=== PATIENT | female | born 1960 | race Caucasian/White ===

== ENCOUNTER 2020-05-20 16:48 | Outpatient (REF) | payer SELFPAY ==
[2020-05-20 18:17] LABS: Leukocytes Stool Qualitative NEGATIVE (NEGATIVE)
== END 2020-05-20 16:49 | disposition home or self-care (01) ==
LOC: HO.LNP 16:48
PROVIDERS: Visit Provider Internal Medicine Gastroenterology
DX: K58.2 Mixed irritable bowel syndrome (principal)
CPT/HCPCS: 87045; 87046; 87177; 87209; 89055

== ENCOUNTER 2020-06-26 17:35 | Emergency (ER) | payer BC, SELFPAY ==
[2020-06-26 18:46] VITALS: BP 109/75; PULSE 86; RESP 18; TEMP 36.5; O2SAT 100; BMI 27.6
[2020-06-26 21:09] VITALS: BP 113/72; PULSE 72; RESP 17; TEMP 37; O2SAT 98
--- NOTE | 2020-06-26 21:29 | ED_ITS ---
HPI - Nausea/Vomiting/Diarrhea General Chief complaint: Abdominal Pain Stated complaint: vomiting Time Seen by Provider: 06/26/20 21:27 Source: patient Mode of arrival: ambulatory Limitations: no limitations History of Present Illness HPI Narrative: This is a 59-year-old female without significant past medical history who presents with all day nausea with multiple episodes of nonbilious /nonbloody vomiting and concomitant nonbloody diarrhea without any associated fever, chills, shortness of breath, chest pain /palpitations, urinary pain/burning / frequency. Patient denies any history of diverticulosis or the possibility of contaminated food. Related Data Previous Rx's Medication Instructions Recorded ondansetron HCl [Zofran] 4 mg PO Q6H #4 tab 06/27/20 Allergies Allergy/AdvReac Type Severity Reaction Status Date / Time No Known Allergies Allergy Mild NONE Unverified 04/28/20 16:34 Review of Systems Review of Systems: Pertinent positives and negatives as stated in HPI 10 point review of systems otherwise negative. PMFSH Past Medical History Source: nursing notes reviewed Medical History No known health problems Surgical History H/O spinal fusion Social History Social History Smoking Status: Never smoker Use of substances other than those prescribed or required for medical reasons: No Advance Directives: No Advance Directives Information Provided: No Physical Exam Vital Signs: Vital Signs: Last Vital Signs Temp 98.6 F 06/26/20 21:09 Pulse 80 06/27/20 00:04 Resp 16 06/27/20 00:04 BP 124/68 06/27/20 00:04 Pulse Ox 97 06/27/20 00:04 Body Mass Index 27.6 VITAL SIGNS: Reviewed. GENERAL: Well developed, well nourished, in no acute distress. HEAD: Normocephalic/atraumatic, EYES: PERRLA, EOMI intact without pain, no nystagmus/pallor/icterus noted EARS: Ext canals without abnormality, TMs non-bulging and non-erythematous NOSE: Nares patent bilateral OROPHARYNX: no oral lesions noted, posterior pharynx clear and non-erythematous without noted tonsillar enlargement/erythema/exudates NECK: Supple, no adenopathy LUNGS: Normal breath sounds. No adventitious sounds or accessory muscle use. SpO2<98> CARDIOVASCULAR: Regular rate and rhythm without noted murmurs, no JVD or lower extremity edema. ABDOMEN: Soft, Tenderness at lower abdomen without rebound, non-distended with bowel sounds. No rigidity. No guarding. No palpable masses or hernias noted MUSCULOSKELETAL: No tenderness, deformities, or effusions noted on gross inspection. EXTREMITIES: No cyanosis, clubbing or edema. SKIN: Inspection of the skin reveals no rashes, ulcerations, jaundice, pallor, or petechiae. NEUROLOGIC: Alert and oriented x 4. Strength and sensation to light touch were grossly intact x 4. Course Course Course Narrative: this is a 59-year-old female with history and clinical presentation suggestive of possible UTI, gastroenteritis, diverticulitis, appendicitis. On review of all investigations there is no evidence of systemic infection, anemia, electrolyte abnormalities or renal/ liver dysfunction. In addition urinalysis is negative for any acute findings other than presence of ketones which does suggest mild dehydration. Patient responded well to antiemetics and fluid resuscitation and review of CT scan is negative for any acute intra- abdominal pathologies. On re-evaluation patient is able to tolerate p.o. and will be discharged in stable condition with a prescription for Zofran and instructions to take it over the next 24 hours and increase her fluid hydration. All results and findings were discussed with her at bedside. MDM - Nausea/Vomiting/Diarrhea Lab Data Result diagrams: 06/26/20 21:36 06/26/20 21:36 Labs: Lab Results 06/26/20 06/26/20 06/26/20 Range/Units 21:36 21:36 21:36 WBC 7.3 (4.8-10.8) X10*3/uL RBC 4.31 (4.20-5.50) X10*6/uL Hgb 14.5 (12.0-16.0) g/dl Hct 41.9 (37-47) % MCV 97.2 (80-98) fL MCH 33.6 H (27.0-33.0) pg MCHC 34.6 (31.0-35.0) g/dl RDW 11.7 (11.0-16.0) % Plt Count 211 (160-400) X10*3/uL MPV 11.3 (9.4-12.3) fL Immature Gran % (Auto) 0.1 (0.0-0.4) % Neut % (Auto) 74.5 H (45-73) % Lymph % (Auto) 18.7 L (20-40) % [place] % (Auto) 6.1 (2-11) % Eos % (Auto) 0.3 (0-4) % Baso % (Auto) 0.3 (0-2) % Lymph # (Auto) 1.4 (1.2-4.9) X10*3/uL [place] # (Auto) 0.4 (0.1-1.2) X10*3/uL Eos # (Auto) 0.0 (0.0-0.4) X10*3/uL Baso # (Auto) 0.0 (0.0-0.2) X10*3/uL Abs Immat Gran (auto) 0.01 (0.00-0.03) X10*3/uL Absolute Neuts (auto) 5.4 (2.0-8.3) X10*3/uL Absolute Nucleated RBC 0.000 (0.0-0.012) X10*3/uL Nucleated RBC % (auto) 0.0 (0.0-0.2) /100WBC Hold Purple Top PT 12.7 (10.8-13.0) SEC INR 1.1 (0.9-1.1) Sodium (135-145) mmol/L Potassium (3.3-5.1) mmol/l Chloride (96-108) mmol/L Carbon Dioxide (22-29) mmol/L Anion Gap (12-20) BUN (9-16) mg/dL Creatinine (0.5-1.4) mg/dL Estim Creat Clear Calc Estimated GFR Random Glucose (60-115) mg/dL Calcium (8.4-10.2) mg/dL Total Bilirubin (0.0-1.0) mg/dL AST (5-31) U/L ALT (0-31) U/L Alkaline Phosphatase (39-117) U/L Total Protein (6.5-8.0) g/dL Albumin (3.5-5.0) g/dL Lipase (8-78) U/L Hold Red Top See Note Hold Green Top See Note Hold Yellow Top See Note Urine Color Urine Appearance Urine pH (5.0-8.0) Ur Specific [place] (1.005-1.025) Urine Protein (NEG-TRACE) MG/DL Urine Glucose (UA) (NEG) MG/DL Urine Ketones (NEG) MG/DL Urine Blood (NEG) Urine Nitrite (NEG) Ur Leukocyte Esterase (NEG) 06/26/20 06/26/20 06/26/20 Range/Units 21:36 21:37 22:28 WBC (4.8-10.8) X10*3/uL RBC (4.20-5.50) X10*6/uL Hgb (12.0-16.0) g/dl Hct (37-47) % MCV (80-98) fL MCH (27.0-33.0) pg MCHC (31.0-35.0) g/dl RDW (11.0-16.0) % Plt Count (160-400) X10*3/uL MPV (9.4-12.3) fL Immature Gran % (Auto) (0.0-0.4) % Neut % (Auto) (45-73) % Lymph % (Auto) (20-40) % [place] % (Auto) (2-11) % Eos % (Auto) (0-4) % Baso % (Auto) (0-2) % Lymph # (Auto) (1.2-4.9) X10*3/uL [place] # (Auto) (0.1-1.2) X10*3/uL Eos # (Auto) (0.0-0.4) X10*3/uL Baso # (Auto) (0.0-0.2) X10*3/uL Abs Immat Gran (auto) (0.00-0.03) X10*3/uL Absolute Neuts (auto) (2.0-8.3) X10*3/uL Absolute Nucleated RBC (0.0-0.012) X10*3/uL Nucleated RBC % (auto) (0.0-0.2) /100WBC Hold Purple Top SEE NOTE PT (10.8-13.0) SEC INR (0.9-1.1) Sodium 141 (135-145) mmol/L Potassium 3.9 (3.3-5.1) mmol/l Chloride 105 (96-108) mmol/L Carbon Dioxide 28 (22-29) mmol/L Anion Gap 12 (12-20) BUN 9 (9-16) mg/dL Creatinine 0.69 (0.5-1.4) mg/dL Estim Creat Clear Calc 101.3 Estimated GFR > 60 Random Glucose 105 (60-115) mg/dL Calcium 9.1 (8.4-10.2) mg/dL Total Bilirubin 0.6 (0.0-1.0) mg/dL AST 31 (5-31) U/L ALT 34 H (0-31) U/L Alkaline Phosphatase 57 (39-117) U/L Total Protein 7.1 (6.5-8.0) g/dL Albumin 4.3 (3.5-5.0) g/dL Lipase 16 (8-78) U/L Hold Red Top Hold Green Top Hold Yellow Top Urine Color YELLOW Urine Appearance CLEAR Urine pH 6.5 (5.0-8.0) Ur Specific [place] 1.015 (1.005-1.025) Urine Protein NEG (NEG-TRACE) MG/DL Urine Glucose (UA) NEG (NEG) MG/DL Urine Ketones 15 (NEG) MG/DL Urine Blood NEG (NEG) Urine Nitrite NEG (NEG) Ur Leukocyte Esterase NEG (NEG) Discharge Plan Discharge Clinical Impression: Gastroenteritis Patient Disposition: Home, Self-Care Instructions: Dehydration (ED), Gastroenteritis (ED) Additional Instructions: 1. Continue to increase fluid hydration specifically water. 2. You must continue to self quarantine until your called with the results of your COVID-19 testing. During this time frame please review all state mandated guidelines and precautions for the [facility]. The patient and/or family acknowledge understanding of results (as applicable), diagnosis, treatment plan, need for follow up, and symptoms that should prompt a return to the emergency room. Prescriptions: New ondansetron HCl [Zofran] 4 mg tablet 4 mg PO Q6H Qty: 4 RF: 0
[2020-06-26] MEDS: 0.9 % Sodium Chloride 1,000 ML 1000 ML IV (21:42)
[2020-06-26 21:48] LABS: MANUAL DIFF FLAG NO
[2020-06-26 21:55] LABS: Basophils Percent Auto 0.3 % (0-2); Eosinophils Percent Auto 0.3 % (0-4); Hematocrit 41.9 % (37-47); Hemoglobin 14.5 g/dl (12.0-16.0); Imm Gran Abs Auto 0.01 X10*3/uL (0.00-0.03); Imm Gran Pct Auto 0.1 % (0.0-0.4); Lymphocytes Absolute Auto 1.4 X10*3/uL (1.2-4.9); Lymphocytes Percent Auto 18.7 % (20-40); Mean Corpuscular HGB Conc 34.6 g/dl (31.0-35.0); Mean Corpuscular Hemoglobin 33.6 pg (27.0-33.0); Mean Corpuscular Volume 97.2 fL (80-98); Mean Platelet Volume 11.3 fL (9.4-12.3); Monocytes Absolute Auto 0.4 X10*3/uL (0.1-1.2); Monocytes Percent Auto 6.1 % (2-11); Neutrophils Absolute Auto 5.4 X10*3/uL (2.0-8.3); Neutrophils Percent Auto 74.5 % (45-73); Platelet Count 211 X10*3/uL (160-400); Red Blood Count 4.31 X10*6/uL (4.20-5.50); Red Cell Distribution Width 11.7 % (11.0-16.0); White Blood Count 7.3 X10*3/uL (4.8-10.8)
[2020-06-26 22:00] LABS: INTERNATIONAL NORM RATIO 1.1 (0.9-1.1); Prothrombin Time 12.7 SEC (10.8-13.0)
[2020-06-26 22:14] LABS: Alanine Aminotransferase 34 U/L (0-31); Albumin Level 4.3 g/dL (3.5-5.0); Alkaline Phosphatase 57 U/L (39-117); Anion Gap 12 (12-20); Aspartate Amino Transferase 31 U/L (5-31); Bilirubin Total 0.6 mg/dL (0.0-1.0); Blood Urea Nitrogen 9 mg/dL (9-16); Calcium 9.1 mg/dL (8.4-10.2); Carbon Dioxide 28 mmol/L (22-29); Chloride 105 mmol/L (96-108); Creatinine Clr Calc Pharmacy 101.3; Estimated Glomerular Filt Rate > 60; Glucose Random 105 mg/dL (60-115); Lipase 16 U/L (8-78); Potassium 3.9 mmol/l (3.3-5.1); Sodium 141 mmol/L (135-145); Total Protein 7.1 g/dL (6.5-8.0)
[2020-06-26 22:29] VITALS: BP 126/76; PULSE 80; RESP 18; O2SAT 100
[2020-06-26 22:43] LABS: Glucose Urine UA NEG (NEG); Leukocyte Esterase Urine NEG (NEG); Nitrite Urine NEG (NEG); PH 6.5 (5.0-8.0); Specific Gravity - Urine 1.015 (1.005-1.025); Urine Blood NEG (NEG); Urine Ketones 15 MG/DL (NEG); Urine Protein NEG (NEG-TRACE)
[2020-06-26 22:46] LABS: Appearance Urine CLEAR; Color Urine YELLOW
--- NOTE | 2020-06-26 22:52 | CT_ITS ---
EXAMINATION: CT ABDOMEN AND PELVIS WITH CONTRAST CLINICAL INFORMATION: Lower abdominal pain. COMPARISON: 05/04/2019. TECHNIQUE: Contiguous axial thin section helical images of the abdomen and pelvis were performed following the administration of 85 mL of intravenous Omnipaque 3-50. The data set was reformatted in the coronal and sagittal planes and reviewed on an independent workstation. DLP: 619 mGy-cm. FINDINGS: There is mild bibasilar atelectasis. The visualized lung bases are otherwise clear. The visualized portions of the heart are unremarkable. There is a small hiatal hernia. The liver is of normal size and attenuation without concerning focal lesions nor intrahepatic biliary ductal dilation. Several low-attenuation lesions throughout the liver are stable. A normal gallbladder is identified. There is no wall thickening or discernible pericholecystic fluid. The spleen, pancreas, adrenal glands are unremarkable. Both kidneys are of normal size and attenuation without hydronephrosis or nephrolithiasis. There is stable right pelviectasis. Following the administration of IV contrast, prompt symmetric nephrograms are displayed. There is no abdominal free fluid. There is neither mesenteric nor retroperitoneal lymphadenopathy. Normal unopacified loops of small and large bowel are identified. A normal appendix is identified. There is no pelvic free fluid. The urinary bladder is unremarkable. There is neither pelvic nor inguinal lymphadenopathy. Bone windows: Neither sclerotic nor lytic bone lesions are identified. Posterior spinal fusion hardware is intact. CT/CT abdomen pelvis w con IMPRESSION: No evidence for acute abdominal or pelvic inflammatory or infectious processes. Automated exposure control (Care Dose) Adjustment of the mA and/or kv according to patient size (this includes techniques or standardized protocols for targeted exams where dose is matched to indication / reason for exam; i.e. extremities or head).
[2020-06-26] MEDS: iohexoL 350 MG/ML 100 ML INFUS..BTL 85 ML IV (23:57)
[2020-06-27 00:04] VITALS: BP 124/68; PULSE 80; RESP 16; O2SAT 97
--- NOTE | 2020-06-27 00:08 | PC.NURSE ---
Pt found resting in bed, CAOx4, awaiting CT results. Pt reporting a HERNANDEZ, 03/21, states it is making her nauseated. Pt requesting Tylenol for HERNANDEZ. VSS. Continue to monitor.
[2020-06-27] MEDS: Acetaminophen 325 MG TABLET 650 MG PO (00:12)
--- NOTE | 2020-06-27 00:14 | PC.NURSE ---
Pt medicated with Tylenol for HERNANDEZ. Awaiting CT results.
--- NOTE | 2020-06-27 01:03 | PC.NURSE ---
PT TOLERATED PO PLAN FOR D.C PER DR URIARTE
== END 2020-06-27 01:53 | disposition home or self-care (01) ==
PROVIDERS: Emergency Provider Student in an Organized Health Care Education/Training Program; PCP Internal Medicine
DX: K52.9 Noninfective gastroenteritis and colitis, unspecified (principal); E86.0 Dehydration; R10.9 Unspecified abdominal pain; R11.10 Vomiting, unspecified; Z79.899 Other long term (current) drug therapy
CPT/HCPCS: 36415; 74177; 80053; 81003; 83690; 85025; 85610; 96360; 99284; Q9967

== ENCOUNTER 2020-08-22 14:27 | Emergency (ER) | payer BC, SELFPAY ==
[2020-08-22 17:07] VITALS: BP 125/69; PULSE 78; RESP 18; TEMP 36.6; O2SAT 99; BMI 29.9
[2020-08-22 18:10] LABS: MANUAL DIFF FLAG NO
[2020-08-22 18:12] LABS: Basophils Percent Auto 0.7 % (0-2); Eosinophils Absolute Auto 0.1 X10*3/uL (0.0-0.4); Eosinophils Percent Auto 1.3 % (0-4); Hemoglobin 13.8 g/dl (12.0-16.0); Lymphocytes Absolute Auto 1.8 X10*3/uL (1.2-4.9); Lymphocytes Percent Auto 39.3 % (20-40); Mean Corpuscular HGB Conc 34.5 g/dl (31.0-35.0); Mean Corpuscular Hemoglobin 33.7 pg (27.0-33.0); Mean Corpuscular Volume 97.6 fL (80-98); Mean Platelet Volume 11.2 fL (9.4-12.3); Monocytes Absolute Auto 0.4 X10*3/uL (0.1-1.2); Monocytes Percent Auto 7.9 % (2-11); Neutrophils Absolute Auto 2.3 X10*3/uL (2.0-8.3); Neutrophils Percent Auto 50.8 % (45-73); Platelet Count 224 X10*3/uL (160-400); Red Cell Distribution Width 11.9 % (11.0-16.0); White Blood Count 4.6 X10*3/uL (4.8-10.8)
[2020-08-22 18:20] LABS: Glucose Urine UA NEG (NEG); Leukocyte Esterase Urine NEG (NEG); Nitrite Urine NEG (NEG); PH 6.5 (5.0-8.0); Urine Blood NEG (NEG); Urine Ketones 5 MG/DL (NEG); Urine Protein NEG (NEG-TRACE)
[2020-08-22 18:22] LABS: Appearance Urine CLEAR; Color Urine GREEN
[2020-08-22 18:41] LABS: Alanine Aminotransferase 39 U/L (0-31); Albumin Level 4.6 g/dL (3.5-5.0); Alkaline Phosphatase 62 U/L (39-117); Anion Gap 13 (12-20); Aspartate Amino Transferase 34 U/L (5-31); Bilirubin Total 0.4 mg/dL (0.0-1.0); Blood Urea Nitrogen 9 mg/dL (9-16); Calcium 9.6 mg/dL (8.4-10.2); Carbon Dioxide 27 mmol/L (22-29); Chloride 105 mmol/L (96-108); Estimated Glomerular Filt Rate > 60; Glucose Random 90 mg/dL (60-115); Lipase 16 U/L (8-78); Sodium 141 mmol/L (135-145); Total Protein 7.4 g/dL (6.5-8.0)
--- NOTE | 2020-08-22 21:42 | ED.FEMALEGU ---
HPI - Female Genitourinary General Chief complaint: Urogenital-Female Stated complaint: flank pain Time Seen by Provider: 08/22/20 21:35 Source: patient Mode of arrival: ambulatory Limitations: no limitations History of Present Illness HPI Narrative: Patient comes to the emergency room complaining of a urinary tract infection and right-sided flank pain. Patient states that the UTI started a week ago, patient has tried Macrobid, Bactrim which she had to suspend due to an allergic reaction, and 2 days of ciprofloxacin. Patient states her symptoms keep getting worse, now complaining of chills, right-sided flank pain, dysuria with no hematuria MD elicited complaint: dysuria and flank pain Related Data Home Medications Medication Instructions Recorded Confirmed estradiol VAGINAL 06/30/20 Previous Rx's Medication Instructions Recorded famotidine 40 mg tablet 40 mg PO DAILY #90 tab 06/30/20 ondansetron HCl 4 mg tablet 4 mg PO Q12H PRN #20 tab 06/30/20 zolpidem 10 mg tablet 10 mg PO BEDTIME PRN #30 tab 08/01/20 tramadol 50 mg PO TID PRN #10 tab 08/23/20 Allergies Allergy/AdvReac Type Severity Reaction Status Date / Time Sulfa (Sulfonamide Allergy Intermediate Rash Verified 08/22/20 17:07 Antibiotics) Review of Systems Review of Systems: Constitutional : No Weight loss, No Fever, complaining of Chills, No Night Sweats, No Fatigue, No Malaise ENT/Mouth : No Hearing loss, No Ear Pain, No Nasal Congestion, No Sinus Pain, No Hoarseness, No sore throat, No Rhinorrhea, No Swallowing Difficulty Eyes: No Eye Pain, No Swelling, No Redness, No Foreign Body, No Discharge, No Vision Changes Cardiovascular : No Chest Pain, No SOB, No Dyspnea on Exertion, No Orthopnea, No Edema, No Palpitations Respiratory : No Cough, No Sputum, No Wheezing, No Smoke Exposure, No Dyspnea Gastrointestinal : No Nausea, No Vomiting, No Diarrhea, No Constipation, No abdominal Pain, No Hematochezia, No Melena Genitourinary : no irregular bleeding, patient complaining of dysuria, no hematuria, flank pain Musculoskeletal : No joint pain, No Myalgias, No Joint Swelling Skin : No Skin Lesions, No rash Neuro : No Weakness, No Numbness, No Paresthesias, No Loss of Consciousness, No Dizziness, No Headache Psych : No Anxiety/Panic, No Depression, No SI/HI/AH/VH, No Social Issues, Heme/Lymph: No Bruising, No Bleeding,No Lymphadenopathy Endocrine : No Polyuria, No Polydipsia, No Temperature Intolerance PMF Past Medical History Medical History Dyspepsia Insomnia Interstitial cystitis Postlaminectomy syndrome Rectocele Surgical History H/O spinal fusion History of back surgery History of bladder surgery History of colonoscopy History of esophagogastroduodenoscopy (EGD) History of lumbar laminectomy Hx of vaginal hysterectomy Family History Family History Father No problems noted. Mother No problems noted. Sister No problems noted. Sister No problems noted. Son No problems noted. Daughter No problems noted. Daughter No problems noted. Social History Social History Alcohol intake: never Smoking Status: Never smoker Smoked in Last 30 Days: No Use of substances other than those prescribed or required for medical reasons: No Advance Directives: No Advance Directives Information Provided: Yes Physical Exam Vital Signs: Vital Signs: Last Vital Signs Temp 97.8 F 08/22/20 21:43 Pulse 70 08/22/20 23:40 Resp 18 08/22/20 23:40 BP 111/59 L 08/22/20 23:40 Pulse Ox 99 08/22/20 23:40 Body Mass Index 29.9 Appearance: Alert. Oriented X3. No acute distress. Eyes: Pupils equal, round and reactive to light. ENT: Pharynx normal. Neck: Normal inspection. Neck supple. No lymph nodes noted. No crepitus CVS: Normal heart rate and rhythm. Pulses normal. Normal S1 and S2 Respiratory: No respiratory distress. Breath sounds normal. No Wheezing. No rales Abdomen: Soft and nontender. No rigidity. No distention. good BS x4, positive CVA tenderness Skin: Skin warm and dry. Normal skin color. Normal skin turgor. Extremities: No lower extremity edema. No lower extremity edema. No Lacerations. No Rash Neuro: Oriented X 3. No motor deficit. No sensory deficit. Moving all extermities. No slurred speech. Course Course Course Narrative: I discussed the labs imaging with the patient, no acute findings, patient does not have a UTI. No kidney stones. I discussed with the patient that the appendix was not visualized, but no surrounding inflammation was visualized either. White blood cell count within normal limits. Patient's symptoms likely secondary to interstitial cystitis. Patient states she is due for a cystoscopy next month. I discussed with the patient that it is possible that she may have early appendicitis. Patient has no right lower quadrant pain. I discussed with the patient monitoring her symptoms, if she has any worsening pain, fever, chills, she was instructed to return to the emergency room MDM - Female Genitourinary Lab Data Result diagrams: 08/22/20 21:54 08/22/20 21:54 Labs: Lab Results 08/22/20 08/22/20 08/22/20 Range/Units 17:28 18:01 18:01 WBC 4.6 L (4.8-10.8) X10*3/uL RBC 4.10 L (4.20-5.50) X10*6/uL Hgb 13.8 (12.0-16.0) g/dl Hct 40.0 (37-47) % MCV 97.6 (80-98) fL MCH 33.7 H (27.0-33.0) pg MCHC 34.5 (31.0-35.0) g/dl RDW 11.9 (11.0-16.0) % Plt Count 224 (160-400) X10*3/uL MPV 11.2 (9.4-12.3) fL Immature Gran % (Auto) 0.0 (0.0-0.4) % Neut % (Auto) 50.8 (45-73) % Lymph % (Auto) 39.3 (20-40) % [place] % (Auto) 7.9 (2-11) % Eos % (Auto) 1.3 (0-4) % Baso % (Auto) 0.7 (0-2) % Lymph # (Auto) 1.8 (1.2-4.9) X10*3/uL [place] # (Auto) 0.4 (0.1-1.2) X10*3/uL Eos # (Auto) 0.1 (0.0-0.4) X10*3/uL Baso # (Auto) 0.0 (0.0-0.2) X10*3/uL Abs Immat Gran (auto) 0.00 (0.00-0.03) X10*3/uL Absolute Neuts (auto) 2.3 (2.0-8.3) X10*3/uL Absolute Nucleated RBC 0.000 (0.0-0.012) X10*3/uL Nucleated RBC % (auto) 0.0 (0.0-0.2) /100WBC Hold Blue Top SEE NOTE Sodium (135-145) mmol/L Potassium (3.3-5.1) mmol/l Chloride (96-108) mmol/L Carbon Dioxide (22-29) mmol/L Anion Gap (12-20) BUN (9-16) mg/dL Creatinine (0.5-1.4) mg/dL Estim Creat Clear Calc Estimated GFR Random Glucose (60-115) mg/dL Lactic Acid (0.5-2.0) mmol/L Calcium (8.4-10.2) mg/dL Total Bilirubin (0.0-1.0) mg/dL Direct Bilirubin (0.0-0.5) mg/dL AST (5-31) U/L ALT (0-31) U/L Alkaline Phosphatase (39-117) U/L Total Protein (6.5-8.0) g/dL Albumin (3.5-5.0) g/dL Lipase (8-78) U/L Urine Color GREEN Urine Appearance CLEAR Urine pH 6.5 (5.0-8.0) Ur Specific [place] 1.010 (1.005-1.025) Urine Protein NEG (NEG-TRACE) MG/DL Urine Glucose (UA) NEG (NEG) MG/DL Urine Ketones 5 (NEG) MG/DL Urine Blood NEG (NEG) Urine Nitrite NEG (NEG) Ur Leukocyte Esterase NEG (NEG) 08/22/20 08/22/20 08/22/20 Range/Units 18:01 21:54 21:54 WBC 4.3 L (4.8-10.8) X10*3/uL RBC 4.12 L (4.20-5.50) X10*6/uL Hgb 13.9 (12.0-16.0) g/dl Hct 40.2 (37-47) % MCV 97.6 (80-98) fL MCH 33.7 H (27.0-33.0) pg MCHC 34.6 (31.0-35.0) g/dl RDW 12.0 (11.0-16.0) % Plt Count 230 (160-400) X10*3/uL MPV 11.2 (9.4-12.3) fL Immature Gran % (Auto) 0.0 (0.0-0.4) % Neut % (Auto) 37.6 L (45-73) % Lymph % (Auto) 48.6 H (20-40) % [place] % (Auto) 10.6 (2-11) % Eos % (Auto) 2.3 (0-4) % Baso % (Auto) 0.9 (0-2) % Lymph # (Auto) 2.1 (1.2-4.9) X10*3/uL [place] # (Auto) 0.5 (0.1-1.2) X10*3/uL Eos # (Auto) 0.1 (0.0-0.4) X10*3/uL Baso # (Auto) 0.0 (0.0-0.2) X10*3/uL Abs Immat Gran (auto) 0.00 (0.00-0.03) X10*3/uL Absolute Neuts (auto) 1.6 L (2.0-8.3) X10*3/uL Absolute Nucleated RBC 0.000 (0.0-0.012) X10*3/uL Nucleated RBC % (auto) 0.0 (0.0-0.2) /100WBC Hold Blue Top Sodium 141 141 (135-145) mmol/L Potassium 4.0 3.5 (3.3-5.1) mmol/l Chloride 105 104 (96-108) mmol/L Carbon Dioxide 27 27 (22-29) mmol/L Anion Gap 13 14 (12-20) BUN 9 8 L (9-16) mg/dL Creatinine 0.78 0.79 (0.5-1.4) mg/dL Estim Creat Clear Calc 83.0 81.9 Estimated GFR > 60 > 60 Random Glucose 90 99 (60-115) mg/dL Lactic Acid (0.5-2.0) mmol/L Calcium 9.6 9.5 (8.4-10.2) mg/dL Total Bilirubin 0.4 0.5 (0.0-1.0) mg/dL Direct Bilirubin 0.2 (0.0-0.5) mg/dL AST 34 H 35 H (5-31) U/L ALT 39 H 40 H (0-31) U/L Alkaline Phosphatase 62 65 (39-117) U/L Total Protein 7.4 7.7 (6.5-8.0) g/dL Albumin 4.6 4.8 (3.5-5.0) g/dL Lipase 16 (8-78) U/L Urine Color Urine Appearance Urine pH (5.0-8.0) Ur Specific [place] (1.005-1.025) Urine Protein (NEG-TRACE) MG/DL Urine Glucose (UA) (NEG) MG/DL Urine Ketones (NEG) MG/DL Urine Blood (NEG) Urine Nitrite (NEG) Ur Leukocyte Esterase (NEG) 08/22/20 Range/Units 21:54 WBC (4.8-10.8) X10*3/uL RBC (4.20-5.50) X10*6/uL Hgb (12.0-16.0) g/dl Hct (37-47) % MCV (80-98) fL MCH (27.0-33.0) pg MCHC (31.0-35.0) g/dl RDW (11.0-16.0) % Plt Count (160-400) X10*3/uL MPV (9.4-12.3) fL Immature Gran % (Auto) (0.0-0.4) % Neut % (Auto) (45-73) % Lymph % (Auto) (20-40) % [place] % (Auto) (2-11) % Eos % (Auto) (0-4) % Baso % (Auto) (0-2) % Lymph # (Auto) (1.2-4.9) X10*3/uL [place] # (Auto) (0.1-1.2) X10*3/uL Eos # (Auto) (0.0-0.4) X10*3/uL Baso # (Auto) (0.0-0.2) X10*3/uL Abs Immat Gran (auto) (0.00-0.03) X10*3/uL Absolute Neuts (auto) (2.0-8.3) X10*3/uL Absolute Nucleated RBC (0.0-0.012) X10*3/uL Nucleated RBC % (auto) (0.0-0.2) /100WBC Hold Blue Top Sodium (135-145) mmol/L Potassium (3.3-5.1) mmol/l Chloride (96-108) mmol/L Carbon Dioxide (22-29) mmol/L Anion Gap (12-20) BUN (9-16) mg/dL Creatinine (0.5-1.4) mg/dL Estim Creat Clear Calc Estimated GFR Random Glucose (60-115) mg/dL Lactic Acid 0.9 (0.5-2.0) mmol/L Calcium (8.4-10.2) mg/dL Total Bilirubin (0.0-1.0) mg/dL Direct Bilirubin (0.0-0.5) mg/dL AST (5-31) U/L ALT (0-31) U/L Alkaline Phosphatase (39-117) U/L Total Protein (6.5-8.0) g/dL Albumin (3.5-5.0) g/dL Lipase (8-78) U/L Urine Color Urine Appearance Urine pH (5.0-8.0) Ur Specific [place] (1.005-1.025) Urine Protein (NEG-TRACE) MG/DL Urine Glucose (UA) (NEG) MG/DL Urine Ketones (NEG) MG/DL Urine Blood (NEG) Urine Nitrite (NEG) Ur Leukocyte Esterase (NEG) Discharge Plan Discharge Clinical Impression: Acute flank pain Patient Disposition: Home, Self-Care Instructions: Flank Pain (ED) Additional Instructions: If you have any worsening pain, fever, chills, please return to emergency room. Please follow-up with your primary care physician and your urologist tomorrow. If you have any worsening or new symptoms, please return to the emergency room or call 911 Prescriptions: New tramadol 50 mg tablet 50 mg PO TID PRN (Reason: pain) Qty: 10 RF: 0 No Action famotidine 40 mg tablet 40 mg PO DAILY Qty: 90 RF: 0 zolpidem 10 mg tablet 10 mg PO BEDTIME PRN (Reason: insomnia) Qty: 30 RF: 0 estradiol 0.01 % (0.1 mg/gram) cream vaginal RF: 0 ondansetron HCl [Zofran] 4 mg tablet 4 mg PO Q12H PRN (Reason: nausea and vomiting) Qty: 20 RF: 0
[2020-08-22 21:43] VITALS: BP 125/59; PULSE 72; RESP 18; TEMP 36.6; O2SAT 96
[2020-08-22 22:00] LABS: MANUAL DIFF FLAG NO
[2020-08-22 22:02] LABS: Basophils Percent Auto 0.9 % (0-2); Eosinophils Absolute Auto 0.1 X10*3/uL (0.0-0.4); Eosinophils Percent Auto 2.3 % (0-4); Hematocrit 40.2 % (37-47); Hemoglobin 13.9 g/dl (12.0-16.0); Lymphocytes Absolute Auto 2.1 X10*3/uL (1.2-4.9); Lymphocytes Percent Auto 48.6 % (20-40); Mean Corpuscular HGB Conc 34.6 g/dl (31.0-35.0); Mean Corpuscular Hemoglobin 33.7 pg (27.0-33.0); Mean Corpuscular Volume 97.6 fL (80-98); Mean Platelet Volume 11.2 fL (9.4-12.3); Monocytes Absolute Auto 0.5 X10*3/uL (0.1-1.2); Monocytes Percent Auto 10.6 % (2-11); Neutrophils Absolute Auto 1.6 X10*3/uL (2.0-8.3); Neutrophils Percent Auto 37.6 % (45-73); Platelet Count 230 X10*3/uL (160-400); Red Blood Count 4.12 X10*6/uL (4.20-5.50); White Blood Count 4.3 X10*3/uL (4.8-10.8)
[2020-08-22] MEDS: Ketorolac Tromethamine 30 MG/ML VIAL IVPUSH (22:12)
[2020-08-22] MEDS: cefTRIAXone sodium 1 GM in 0.9 % Sodium Chloride 50 ML IV (22:14)
[2020-08-22 22:22] LABS: Lactic Acid 0.9 mmol/L (0.5-2.0)
--- NOTE | 2020-08-22 22:25 | CT_ITS ---
EXAMINATION: CT ABDOMEN AND PELVIS WITHOUT CONTRAST CLINICAL INFORMATION: Right flank pain. COMPARISON: CT abdomen and pelvis 06/26/2020. TECHNIQUE: Multidetector volumetric imaging was performed from the superior aspect of the liver through the pubic symphysis. Sagittal and coronal reformatted images were obtained on the technologist's workstation. This CT examination was performed using dose optimization techniques as appropriate, variously including the following: *Automated exposure control. *Adjustment of mA and/or kV according to patient size (this includes techniques or standardized protocols for targeted exams where dose is matched to indication/reason for exam; i.e. extremities or head). *Use of iterative reconstruction technique. DLP: 607 mGy-cm FINDINGS: LUNG BASES: The visualized lung bases are unremarkable. LIVER, GALLBLADDER, AND BILIARY TREE: The liver is normal in size, shape, and attenuation. Multiple hepatic cysts are again seen and appear stable. No focal hepatic lesion or biliary ductal dilatation is present. The gallbladder is unremarkable with no evidence of radiopaque gallstones, gallbladder wall thickening, or obvious pericholecystic inflammatory changes. PANCREAS: Unremarkable. SPLEEN: Unremarkable. ADRENAL GLANDS: Unremarkable. KIDNEYS AND URETERS: The kidneys are normal in size, shape, and attenuation. A small punctate non-obstructing left lower pole renal calculus is present measuring under 2 mm in size. No hydronephrosis, hydroureter, or calculi seen. Some minimal fullness of the right renal pelvis is present compared to the left but no obstructing lesion is seen. No perinephric stranding. BLADDER: Unremarkable. GASTROINTESTINAL TRACT: The small and large bowel are unremarkable. The appendix is unremarkable. ABDOMINAL WALL: No significant hernia is appreciated. LYMPH NODES: Normal. VASCULAR: Unremarkable. PELVIC VISCERA: Status post hysterectomy. An abnormal adnexal mass or free intraperitoneal fluid is not seen. OSSEOUS STRUCTURES: There has been previous laminectomy and posterior spinal fusion. CT/CT abdomen pelvis wo con IMPRESSION: 1. A cause for the patient's acute right flank pain has not been found. 2. Incidentally noted small sub-2 mm sized non-obstructing left renal calculus 3. Small hepatic hypodensities, presumably cysts, are stable. 4. Postop findings with hysterectomy and spinal surgery.
[2020-08-22 22:26] LABS: Alanine Aminotransferase 40 U/L (0-31); Albumin Level 4.8 g/dL (3.5-5.0); Alkaline Phosphatase 65 U/L (39-117); Anion Gap 14 (12-20); Aspartate Amino Transferase 35 U/L (5-31); Bilirubin Direct 0.2 mg/dL (0.0-0.5); Bilirubin Total 0.5 mg/dL (0.0-1.0); Blood Urea Nitrogen 8 mg/dL (9-16); Calcium 9.5 mg/dL (8.4-10.2); Carbon Dioxide 27 mmol/L (22-29); Chloride 104 mmol/L (96-108); Creatinine Clr Calc Pharmacy 81.9; Estimated Glomerular Filt Rate > 60; Glucose Random 99 mg/dL (60-115); Potassium 3.5 mmol/l (3.3-5.1); Sodium 141 mmol/L (135-145); Total Protein 7.7 g/dL (6.5-8.0)
[2020-08-22] MEDS: Morphine Sulfate 4 MG/ML CARTRIDGE IVPUSH (23:39)
[2020-08-22 23:40] VITALS: BP 111/59; PULSE 70; RESP 18; O2SAT 99
[2020-08-23] VITALS: BP 114/47; PULSE 55; RESP 16; TEMP 36.9; O2SAT 99
== END 2020-08-23 00:28 | disposition home or self-care (01) ==
PROVIDERS: Emergency Medicine; Emergency Provider Emergency Medicine
DX: R10.9 Unspecified abdominal pain (principal)
CPT/HCPCS: 36415; 74176; 80048; 80053; 80076; 81003; 82248; 83605; 83690; 85025; 87040; 96365; 96375; 99284; J0696; J1885; J2270

== ENCOUNTER 2021-01-02 07:37 | Outpatient (REF) | payer BC, SELFPAY ==
[2021-01-02 12:15] LABS: Alanine Aminotransferase 32 U/L (0-31); Anion Gap 12 (12-20); Aspartate Amino Transferase 37 U/L (5-31); Blood Urea Nitrogen 12 mg/dL (9-16); Calcium 9.1 mg/dL (8.4-10.2); Carbon Dioxide 27 mmol/L (22-29); Chloride 106 mmol/L (96-108); Cholesterol 246 mg/dL; Estimated Glomerular Filt Rate > 60; Glucose Fasting 101 mg/dL (60-99); HDL Cholesterol 67 mg/dL; LDL Cholesterol Calculated 163 mg/dl; Potassium 4.1 mmol/L (3.3-5.1); Sodium 141 mmol/L (135-145); Triglycerides 84 mg/dL
[2021-01-02 12:17] LABS: Vitamin D 25-OH Total 46.5 ng/mL (>30)
== END 2021-01-02 07:38 | disposition home or self-care (01) ==
LOC: HO.HMGCLDS 07:37
PROVIDERS: PCP Internal Medicine; Visit Provider Internal Medicine
DX: Z00.01 Encounter for general adult medical examination with abnormal findings (principal); I10 Essential (primary) hypertension; Z78.0 Asymptomatic menopausal state
CPT/HCPCS: 36415; 80048; 80061; 82306; 84450; 84460

== ENCOUNTER 2021-06-23 09:11 | Day surgery (SDC) | payer BC, SELFPAY ==
[2021-06-23 10:21] VITALS: BP 99/63; PULSE 76; RESP 16; TEMP 36.1; O2SAT 98; BMI 26.1
--- NOTE | 2021-06-23 10:52 | MHC.SHP ---
Pre-Procedural Eval Section A Date of Service: 06/23/21 The patient is an INPATIENT: No Changes since office visit: No Cold of Flu in the past 2 weeks, No New Medical Problems, No Changes in Medication and No Patient answered all questions The History & Physical has been completed within 30 days and I have reviewed it.: Yes Section B Chief Complaint: IBS Allergies: Allergies Allergy/AdvReac Type Severity Reaction Status Date / Time Sulfa (Sulfonamide Allergy Intermediate Rash Verified 12/28/20 12:23 Antibiotics) Plan I have reviewed the history and physical and performed a pertinent physical examination on my patient. No changes have occurred unless specified.
--- NOTE | 2021-06-23 10:52 | HO.ANESPROP2 ---
HPI - Anesthesia Eval Consult details Narrative: 60 yo female patient for colonoscopy PMFSH Active Problems Active Problems: All Active Problems (Updated 01/03/21 @ 23:57 by Concetta Thorpe MD) Folliculitis (Acute) Postlaminectomy syndrome (Acute) Insomnia (Acute) Interstitial cystitis (Acute) Past Medical History Medical History Dyspepsia Folliculitis Insomnia Interstitial cystitis Postlaminectomy syndrome Rectocele Family History Family History Father No problems noted. Mother No problems noted. Sister No problems noted. Sister No problems noted. Son No problems noted. Daughter No problems noted. Daughter No problems noted. Family history of problems with anesthesia: No Surgical History Surgical History H/O spinal fusion History of back surgery History of bladder surgery History of colonoscopy History of esophagogastroduodenoscopy (EGD) History of lumbar laminectomy Hx of vaginal hysterectomy History of Problems with Anesthesia: No Social History Social History Alcohol intake: never Patient Tobacco Use Status: Never used Tobacco Use of substances other than those prescribed or required for medical reasons: No Are you DNR?: No Advance Directives: No Advance Directives Information Provided: Yes Meds Allergies Allergy/AdvReac Type Severity Reaction Status Date / Time Sulfa (Sulfonamide Allergy Intermediate Rash Verified 12/28/20 12:23 Antibiotics) Home Medications Medication Instructions Recorded Confirmed Last Taken Type estradiol VAGINAL 06/30/20 Unknown History cholecalciferol (vitamin D3) 50 4,000 unit PO DAILY cap 12/28/20 12/28/20 Unknown History mcg (2,000 unit) capsule multivitamin 1 tab PO DAILY 12/28/20 12/28/20 Unknown History Exam Exam Date and Time: June 23, 2021 1052 Height,Weight and Vital Signs: Height 5 ft 8 in Weight 78.018 kg Last Vital Signs Temp 96.9 F 06/23/21 10:21 Pulse 76 06/23/21 10:21 Resp 16 06/23/21 10:21 BP 99/63 06/23/21 10:21 Pulse Ox 98 06/23/21 10:21 Airway Mallampati Class: II TM Dist: >3cm Neck ROM: Limited (S/p cervical surgery) Loose/Missing/Broken Teeth: No Heart: RRR Lungs: CTAB Assessment and Plan Assessment Anesthesia Assessment: Anesthesia Plan Discussed (Patient feels like vomiting. Will intubate for procedure) and Chart Reviewed Final Anesthetic Review Family History of Problems with Anesthesia: No History of Problems with Anesthesia: No NPO: Yes ASA Class: II Final Preanesthetic Review: No Changes in Pt Med Stat, Meds/Allgs Chart Reviewed, Consent Obtained/Reviewed and Anes Risks/Benef Reviewed Patient Risk: Intermediate Procedure Risk: Low Assessment/Block/Sedation in SS: Assess/Block/Sedation-SS Anesthetic Plan Anesthetic Plan: GA Disposition: Standard PACU
[2021-06-23] MEDS: Lactated Ringers 1,000 ML 100 ML IVCONT (11:01)
[2021-06-23 11:39] VITALS: BP 105/59; PULSE 67; RESP 14; TEMP 36.1; O2SAT 98
--- NOTE | 2021-06-23 11:43 | PM.OP ---
Brief Operative Note Date of Service: 06/23/21 Pre-op diagnosis: ibs Post-op diagnosis: same Procedure: colonoscopy Surgeon: Reji Chambers Anesthesia: MAC Was an Loss Prevention/Safety District Manager used for this Procedure?: No Estimated blood loss (mL): 1 Pathology: other (bxs ti and sigmoid) Condition: stable Disposition: PACU
[2021-06-23 12:01] VITALS: BP 99/59; PULSE 61; RESP 16; TEMP 36.1; O2SAT 99
[2021-06-23 12:06] VITALS: BP 103/73
--- NOTE | 2021-06-23 15:20 | OP_ITS ---
SURGEON: Reji Chambers MD INDICATIONS: Irritable bowel syndrome with constipation. PREOPERATIVE DIAGNOSIS: POSTOPERATIVE DIAGNOSIS: PROCEDURE PERFORMED: Colonoscopy to the terminal ileum with biopsy. ESTIMATED BLOOD LOSS: COMPLICATIONS: ANESTHESIA: ASSISTANTS: SPECIMENS: MEDICATIONS: Monitored anesthesia care. DESCRIPTION OF PROCEDURE: History and physical performed. The risks and benefits of the procedure were explained to the patient. Informed consent was obtained. The patient was placed in the left lateral decubitus position. A digital rectal exam was performed and was found to be normal. The Olympus pediatric video colonoscope was introduced into the rectum and advanced to the cecum without difficulty. The cecum was identified by transillumination, palpation, and identification of ileocecal valve. Examination was performed and the scope was removed. She tolerated the procedure well and was taken to recovery area in stable condition. FINDINGS: The terminal ileum was examined and appeared normal. The visualized colonic mucosa was normal. The quality of the prep was good. There was no evidence of colitis. 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 Biopsies were obtained from the terminal ileum and the sigmoid. The quality of the prep was good. Retroflexed examination showed some hypertrophic anal papillae. IMPRESSION: Normal colonoscopy. RECOMMENDATION: Follow up the biopsy results. Screening colonoscopy is recommended in 10 years. MD KAYLI Mcgarry/KENJI / [id number] MTDD
== END 2021-06-23 12:31 | disposition home or self-care (01) ==
PROVIDERS: PCP Physician Assistant Medical; Visit Provider Internal Medicine Gastroenterology
PROC: 0DJD8ZZ Inspection of Lower Intestinal Tract, Via Natural or Artificial Opening Endoscopic (ICD-10-PCS; CPT 45378; principal; 2021-06-23 10:20)
DX: K58.1 Irritable bowel syndrome with constipation (principal); K63.89 Other specified diseases of intestine; K62.89 Other specified diseases of anus and rectum; N30.10 Interstitial cystitis (chronic) without hematuria; R32 Unspecified urinary incontinence; M96.1 Postlaminectomy syndrome, not elsewhere classified; Z79.899 Other long term (current) drug therapy
CPT/HCPCS: 45380; 88305; J0330; J2405; J2765; J3010

== ENCOUNTER 2022-11-07 12:19 | Day surgery (SDC) | payer BC, SELFPAY ==
--- NOTE | 2022-11-06 12:04 | HO.ANESPROP2 ---
HPI - Anesthesia Eval Consult details Narrative: 62yo F for Upper Endoscopy PMFSH Active Problems Active Problems: All Active Problems (Updated 01/03/21 @ 23:57 by Concetta Thorpe MD) Folliculitis (Acute) Postlaminectomy syndrome (Acute) Insomnia (Acute) Interstitial cystitis (Acute) Past Medical History Medical History Dyspepsia Folliculitis Insomnia Interstitial cystitis Postlaminectomy syndrome Rectocele Family History Family History Father No problems noted. Mother No problems noted. Sister No problems noted. Sister No problems noted. Son No problems noted. Daughter No problems noted. Daughter No problems noted. Family history of problems with anesthesia: No Surgical History Surgical History H/O spinal fusion History of back surgery History of bladder surgery History of colonoscopy History of esophagogastroduodenoscopy (EGD) History of lumbar laminectomy Hx of vaginal hysterectomy History of Problems with Anesthesia: No Social History Social History Alcohol intake: never Patient Tobacco Use Status: Never used Tobacco Use of substances other than those prescribed or required for medical reasons: No Are you DNR?: No Advance Directives: No Advance Directives Information Provided: Yes Meds Allergies Allergy/AdvReac Type Severity Reaction Status Date / Time Sulfa (Sulfonamide Allergy Intermediate Rash Verified 12/28/20 12:23 Antibiotics) Home Medications Medication Instructions Recorded Confirmed Last Taken Type estradiol 0.01% (0.1 mg/gram) vaginal 2XW 06/30/20 Unknown History vaginal cream multivitamin 1 tab PO DAILY 12/28/20 12/28/20 Unknown History Exam Exam Date and Time: November 06, 2022 120 Assessment and Plan Final Anesthetic Review Family History of Problems with Anesthesia: No History of Problems with Anesthesia: No
[2022-11-07] VITALS (7 sets, daily range): BP systolic 78–116; BP diastolic 31–69; PULSE 55–75; RESP 13–18; TEMP 36.2–36.7; O2SAT 91–99; BMI 28.3
--- NOTE | 2022-11-07 13:29 | P.CONAN_ITS ---
HPI - Anesthesia Eval Consult details Narrative: screening [facility] Active Problems Active Problems: All Active Problems (Updated 01/03/21 @ 23:57 by Concetta Thorpe MD) Folliculitis (Acute) Postlaminectomy syndrome (Acute) Insomnia (Acute) Interstitial cystitis (Acute) Past Medical History Medical History Dyspepsia Folliculitis Insomnia Interstitial cystitis Postlaminectomy syndrome Rectocele Family History Family History Father No problems noted. Mother No problems noted. Sister No problems noted. Sister No problems noted. Son No problems noted. Daughter No problems noted. Daughter No problems noted. Family history of problems with anesthesia: No Surgical History Surgical History H/O spinal fusion History of back surgery History of bladder surgery History of colonoscopy History of esophagogastroduodenoscopy (EGD) History of lumbar laminectomy Hx of vaginal hysterectomy History of Problems with Anesthesia: No Social History Social History Alcohol intake: never Patient Tobacco Use Status: Never used Tobacco Use of substances other than those prescribed or required for medical reasons: No Are you DNR?: No Advance Directives: No Advance Directives Information Provided: Yes Meds Allergies Allergy/AdvReac Type Severity Reaction Status Date / Time Sulfa (Sulfonamide Allergy Intermediate Rash Verified 12/28/20 12:23 Antibiotics) Home Medications Medication Instructions Recorded Confirmed Last Taken Type estradiol 0.01% (0.1 mg/gram) vaginal 2XW 06/30/20 Unknown History vaginal cream multivitamin 1 tab PO DAILY 12/28/20 12/28/20 Unknown History Exam Exam Date and Time: November 07, 2022 1329 Height,Weight and Vital Signs: Height 5 ft 8 in Weight 84.368 kg Last Vital Signs Temp 97.6 F 11/07/22 12:47 Pulse 75 11/07/22 12:47 Resp 18 11/07/22 12:47 BP 111/69 11/07/22 12:47 Pulse Ox 95 11/07/22 12:47 O2 Del Method Room Air 11/07/22 12:47 Airway Mallampati Class: II TM Dist: >3cm Heart: rr Lungs: cta Assessment and Plan Assessment Anesthesia Assessment: Anesthesia Plan Discussed and Chart Reviewed Final Anesthetic Review Family History of Problems with Anesthesia: No History of Problems with Anesthesia: No NPO: Yes ASA Class: II Final Preanesthetic Review: No Changes in Pt Med Stat, Meds/Allgs Chart Reviewed, Consent Obtained/Reviewed and Anes Risks/Benef Reviewed Patient Risk: Low Procedure Risk: Low Anesthetic Plan Anesthetic Plan: MAC: Disposition: Standard PACU
--- NOTE | 2022-11-07 13:58 | MHC.SHP ---
Pre-Procedural Eval Section A Date of Service: 11/07/22 The patient is an INPATIENT: No Changes since office visit: No Cold of Flu in the past 2 weeks, No New Medical Problems, No Changes in Medication and No Patient answered all questions The History & Physical has been completed within 30 days and I have reviewed it.: Yes Section B Chief Complaint: Epigastric pain Allergies: Allergies Allergy/AdvReac Type Severity Reaction Status Date / Time Sulfa (Sulfonamide Allergy Intermediate Rash Verified 12/28/20 12:23 Antibiotics) Plan I have reviewed the history and physical and performed a pertinent physical examination on my patient. No changes have occurred unless specified. Time Spent With Patient Time: Total time managing care of this patient today ____ minutes.
--- NOTE | 2022-11-07 14:17 | P.BOP_ITS ---
Brief Operative Note Date of Service: 11/07/22 Pre-op diagnosis: epigastric pain Post-op diagnosis: same Procedure: egd Surgeon: Reji Chambers Anesthesia: MAC Was an Radioactive Waste Disposal Dispatcher used for this Procedure?: No Estimated blood loss (mL): 5 Pathology: other Condition: stable Disposition: PACU
--- NOTE | 2022-11-07 23:52 | OP_ITS ---
DATE OF SERVICE: 11/07/2022 SURGEON: Reji Chambers MD INDICATIONS: Epigastric pain. PREOPERATIVE DIAGNOSIS: POSTOPERATIVE DIAGNOSIS: PROCEDURE PERFORMED: Upper endoscopy with biopsy. ESTIMATED BLOOD LOSS: COMPLICATIONS: ANESTHESIA: Monitored anesthesia care. ASSISTANTS: SPECIMENS: DESCRIPTION OF PROCEDURE: A history and physical was performed. The risks and benefits of the procedure were explained to the patient and informed consent was obtained. The patient was placed in the left lateral decubitus position. The Olympus video gastroscope was introduced into the esophagus, stomach, and duodenum. Examination was performed. The scope was removed. She tolerated the procedure well and was returned to recovery in stable condition. FINDINGS: 1. Esophagus: The esophagus was normal. The esophagogastric junction was slightly irregular. Biopsies were obtained at the level of the esophagogastric junction. 2. Stomach: The stomach showed some less than 10 mm small flat polyps in the fundus consistent with fundic gland polyps. Two of these were biopsied. Antral biopsies were obtained. The mucosa of the stomach appeared normal. 3. Duodenum: The bulb and second portion were normal. Biopsies were obtained from the second portion. IMPRESSION: Gastric polyps. RECOMMENDATION: Follow up the biopsy results. MD KAYLI Mcgarry/KENJI / [id number]
== END 2022-11-07 15:39 | disposition home or self-care (01) ==
PROVIDERS: PCP Physician Assistant Medical; Visit Provider Internal Medicine Gastroenterology
PROC: 0DJ08ZZ Inspection of Upper Intestinal Tract, Via Natural or Artificial Opening Endoscopic (ICD-10-PCS; CPT 43235; principal; 2022-11-07 13:40)
DX: K29.50 Unspecified chronic gastritis without bleeding (principal); K31.7 Polyp of stomach and duodenum; K22.70 Barrett's esophagus without dysplasia; K58.2 Mixed irritable bowel syndrome; N30.10 Interstitial cystitis (chronic) without hematuria; R32 Unspecified urinary incontinence; E78.5 Hyperlipidemia, unspecified; F41.1 Generalized anxiety disorder; Z79.899 Other long term (current) drug therapy; Z88.2 Allergy status to sulfonamides; Z98.890 Other specified postprocedural states
CPT/HCPCS: 43239; 88305; 88342; J2250

== ENCOUNTER 2024-12-01 10:29 | Outpatient (REF) | payer MEDICARE, BC, SELFPAY ==
--- NOTE | ~2024-12-01 | CT_ITS ---
CLINICAL HISTORY: back pain CT lumbar spine without contrast Comparison: None Findings: Limited study based on artifact. Extensive postsurgical and degenerative changes. Evidence of prior hardware removal with cement placement along multiple laminectomy defects. The hardware present appears intact. No bony central canal narrowing. No acute fracture or acute malalignment. Retroperitoneal contents appear within expected limits. Impression: Extensive postsurgical and degenerative change. No definite acute process or significant central canal narrowing. No comparison studies. Evaluation limited by artifact This document has been electronically signed by: Darrius Archer MD on 12/03/2024 05:14:53
--- OUTSIDE RECORDS SUMMARY | 2024-12-01 12:13 | XMS_ITS | Encounter Summary ---
Author Organization [facility] Address [address] [place] [address] Care Team Providers Care Marine Driller Name Role Phone Loreta Giraldo PA-C Primary Care Provi ronnie Ifrah Callejas MD Unavailable Mary Cavanaugh MD Unavailable [phone] Jagdish Romo Unavailable Sammie Culver MD Unavailable [phone] Encounter Details Date Type Department Care Team (Late st Contact Info) Description 04/23/[address] [facility] UROLOGY SCAN Provider, Generic External Data Social History Tobacco Use Types Packs/Day Years Used Date Smoking Tobacco: Never Smokeless Tobacco: Never Alcohol Use Standard Drinks/Week Comments Not Currently 0 (1 standard drink = 0.6 oz pur e alcohol) PHQ-2 Answer Date Recorded PHQ-2 Total Score 0 12/11/2023 Comments Unknown Sex and Gender Information Value Date Recorded Sex Assigned at Female 11/09/2023 10:02 AM EDT Legal Sex Female 2:58 PM EST Gender Identity Female 11/09/2023 10:02 AM EDT Sexual Orientation Asexual 11/09/2023 10 :02 AM EDT documented as of this encounter Plan of Treatment Upcoming Encounters Date Type Department Care Team (Late st Contact Info) Description 12/01/2024 1:40 PM EDT Consult [facility] Medical Weight Loss [address] [address] Loreta Giraldo PA-C [address] [facility] [place] [address] Roxy Lanza, VICE INVESTIGATOR [address] [address] 06/04/2025 11:30 AM EDT Office Visit [facility] [address] [place] [address] Loreta Giraldo PA-C [address] [place] [address] documented as of this encounter Visit Diagnoses Not on filedocumented in this encounter Care Teams Marine Driller Relationship Specialty Start Date End Date Loreta Giraldo PA-C [address] [place] [address] PCP - General Internal Medicine 09/11/23 [place] [address] [place] [address] [address] [place] [address] Referring Provider Allergy 11/10/23 Mary Cavanaugh MD [address] [place] [address] [address] [place] [address] Referring Provider Urology 11/10/23 Jagdish Romo [address] [place] [address] Physical Medicine and Rehabilitation 11/10/23 Sammie Culver MD [address] [place] [address] Orthopedic Surgery-Scan 11/10/23 Dalton Murillo Physician Cardiology-Scan 10/07/23 Heidy Harrell [facility] Nurse Practitioner Gastroenterology 10/07/23 documented as of this encounter
--- OUTSIDE RECORDS SUMMARY | 2024-12-01 12:13 | XMS_ITS | Encounter Summary ---
Author Organization [facility] Address [address] [place] [address] Care Team Providers Care Asset Protection Specialist Name Role Phone Loreta Giraldo PA-C Primary Care Provi ronnie Ifrah Callejas MD Unavailable [phone] Mary Cavanaugh MD Unavailable [phone] Jagdish Romo Unavailable Sammie Culver MD Unavailable [phone] Encounter Details Date Type Department Care Team (Late st Contact Info) Description 08/10/2024 Scanned Document [facility] [address] [place] [address] Urology, Scan Social History Tobacco Use Types Packs/Day Years Used Date Smoking Tobacco: Never Smokeless Tobacco: Never Alcohol Use Standard Drinks/Week Comments Not Currently 0 (1 standard drink = 0.6 oz pur e alcohol) [facility] Utilities Answer Date Recorded In the past 12 months has [employer], gas, oil, or water [employer] threatened to shut off services in your home? No 07/14/2024 Social Connection and Isolation Panel [NHANES] A nswer Date Recorded In a typical week, how many times do you talk on the phone with family, friends, or neighbors? Once a week 07/14/2024 Frequency of Social Gatherings with Friends and Family Not on file 07/14/2024 Attends Evangelical Services Not on file 07/14 Active Member of Clubs or Organizations Not on f ile 07/14/2024 Attends Club or Organization Meetings Not on darcie e 07/14/2024 Marital Status Not on file 07/14/2024 AUDIT-C Answer Date Recorded Q1: How often do you have a drink containing alc ohol? Never 07/14/2024 Average Number of Drinks Not on file 024 Frequency of Binge Drinking Not on file 10/2023 PHQ-2 Answer Date Recorded PHQ-2 Total Score 0 05/24/2024 Hunger Vital Sign Answer Date Recorded Within the past 12 months, y ou worried that your food would run out before you got the money to buy more. Never true 07/14/20 24 Within the past 12 months, t he food you bought just didn't last and you didn't have money to get more. Never true 07/14/2024 PRAPARE - Transportation Answer Date Re corded In the past 12 months, has l ack of transportation kept you from medical appointments or from getting medications? No 10/2023 In the past 12 months, has l ack of transportation kept you from meetings, work, or from getting things needed for daily living? No 07/14/2024 Housing Stability Vital Sign Answer Mick e Recorded In the last 12 months, was t here a time when you were not able to pay the mortgage or rent on time? No 07/14/2024 In the past 12 months, how m any times have you moved where you were living? 0 07/14/2024 At any time in the past 12 m [facility], were you homeless or living in a nursing home (including now)? No 07/14/2024 Physical Activity Answer Date Recorded On average, how many days pe r week do you engage in moderate to strenuous exercise (like a brisk walk)? 0 days 05/24/2024 On average, how many minutes do you exercise per day at this level? 0 min 05/24/2024 Education Answer Date Recorded What is the highest level of school you have completed or the highest degree you have received? Some college, no degree 07/14/2024 Comments Unknown Sex and Gender Information Value Date Recorded Sex Assigned at Female 11/09/2023 10:02 AM EDT Legal Sex Female 2:58 PM EST Gender Identity Female 11/09/2023 10:02 AM EDT Sexual Orientation Asexual 11/09/2023 10 :02 AM EDT documented as of this encounter Plan of Treatment Upcoming Encounters Date Type Department Care Team (Late st Contact Info) Description 12/01/2024 1:40 PM EDT Consult [facility] Medical Weight Loss [address] [address] Loreta Giraldo PA-C [address] [place] [address] Roxy Lanza, SALON RECEPTIONIST [address] [phone] 06/04/2025 11:30 AM EDT Office Visit [facility] [address] [place] [address] Loreta Giraldo PA-C [address] [place] [address] documented as of this encounter Visit Diagnoses Not on filedocumented in this encounter Care Teams Asset Protection Specialist Relationship Specialty Start Date End Date Loreta Giraldo PA-C [address] [place] [address] PCP - General Internal Medicine 09/11/23 Ifrah Callejas MD [address] [place] [address] [address] [place] [address] Referring Provider Allergy 11/10/23 Mary Cavanaugh MD [address] [place] [address] [address] [place] [address] Referring Provider Urology 11/10/23 Jagdish Romo [address] [place] [address] Physical Medicine and Rehabilitation 11/10/23 Sammie Culver MD [address] [place] [address] Orthopedic Surgery-Scan 11/10/23 Dalton Murillo Physician Cardiology-Scan 10/07/23 Heidy Harrell [facility] Nurse Practitioner Gastroenterology 10/07/23 documented as of this encounter
--- OUTSIDE RECORDS SUMMARY | 2024-12-01 12:13 | XMS_ITS | Encounter Summary ---
Author Organization [facility] Address [address] [place] [address] Care Team Providers Care Security Installation Sales Technician Name Role Phone Loreta Giraldo PA-C Primary Care Provi ronnie Ifrah Callejas MD Unavailable [phone] Mary Cavanaugh MD Unavailable [phone] Jagdish Romo Unavailable Sammie Culver MD Unavailable [phone] Encounter Details Date Type Department Care Team (Late st Contact Info) Description 03/10/2024 Scanned Document [facility] [address] [place] [address] Loreta Giraldo PA-C [address] [place], [place] [address] Social History Tobacco Use Types Packs/Day Years [...] Info) Description 12/01/2024 1:40 PM EDT Consult [facility] Medical Weight Loss [address] [phone] Loreta Giraldo PA-C [address] [place] [address] Roxy Lanza, EARLY CHILDHOOD EDUCATOR AIDE 7 [facility] [address] [place] [phone] 06/04/2025 11:30 AM EDT Office Visit [facility] [address] [place] [address] Loreta Giraldo PA-C [address] [place] [address] documented as of this encounter Visit Diagnoses Not on filedocumented in this encounter Care Teams Security Installation Sales Technician Relationship Specialty Start Date End Date Loreta Giraldo PA-C [address] [place] [address] PCP - General Internal Medicine 09/11/23 Ifrah Callejas MD [address] [place] [address] [address] [place] [address] Referring Provider Allergy 11/10/23 Mary Cavanaugh MD [address] [place] [address] [address] [place] [address] Referring Provider Urology 11/10/23 Jagdish Romo [address] [place] [address] Physical Medicine and Rehabilitation 11/10/23 Sammie Culver MD [address] [place] [address] Orthopedic Surgery-Scan 11/10/23 Dalton Murillo Physician Cardiology-Scan 10/07/23 Heidy Harrell [facility] Nurse Practitioner Gastroenterology 10/07/23 documented as of this encounter
--- OUTSIDE RECORDS SUMMARY | 2024-12-01 12:13 | XMS_ITS | Encounter Summary ---
Author Organization [facility] Address [address] [place] [address] Care Team Providers Care Glass Designer Name Role Phone Loreta Giraldo PA-C Primary Care Provi ronnie Ifrah Callejas MD Unavailable [phone] Mary Cavanaugh MD Unavailable [phone] Jagdish Romo Unavailable Sammie Culver MD Unavailable [phone] Encounter Details Date Type Department Care Team (Late st Contact Info) Description 10/15/2023 Scanned Document [facility] UROLOGY SCAN Urology, Scan Social History Tobacco Use Types Packs/Day Years Used Date Smoking Tobacco: Never Smokeless Tobacco: Never Alcohol Use Standard Drinks/Week Comments Not Currently 0 (1 standard drink = 0.6 oz pur e alcohol) PHQ-2 Answer Date Recorded PHQ-2 Total Score 0 09/11/2023 Comments Unknown Sex and Gender Information Value Date Recorded Sex Assigned at Female 11/09/2023 10:02 AM EDT Legal Sex Female 2:58 PM EST Gender Identity Female 11/09/2023 10:02 AM EDT Sexual Orientation Asexual 11/09/2023 10 :02 AM EDT documented as of this encounter Plan of Treatment Upcoming Encounters Date Type Department Care Team (Late st Contact Info) Description 12/01/2024 1:40 PM EDT Consult [facility] Medical Weight Loss [address] [phone] Loreta Giraldo PA-C [address] [place] [address] Roxy Lanza, ACOUSTICAL TILE DRILL PRESS OPERATOR [address] [phone] 06/04/2025 11:30 AM EDT Office Visit [facility] [address] [place] [address] Loreta Giraldo PA-C [address] [place] [address] documented as of this encounter Visit Diagnoses Not on filedocumented in this encounter Care Teams Glass Designer Relationship Specialty Start Date End Date Loreta Giraldo PA-C [address] [place] [address] PCP - General Internal Medicine 09/11/23 Ifrah Callejas MD [address] [facility] [address] [place] [address] Referring Provider Allergy 11/10/23 Mary Cavanaugh MD [address] [place] [address] [address] [place] [address] Referring Provider Urology 11/10/23 Jagdish Romo [address] [place] [address] Physical Medicine and Rehabilitation 11/10/23 Sammie Culver MD [address] [place] [address] Orthopedic Surgery-Scan 11/10/23 Dalton Murillo Physician Cardiology-Scan 10/07/23 Heidy Harrell [facility] Nurse Practitioner Gastroenterology 10/07/23 documented as of this encounter
--- OUTSIDE RECORDS SUMMARY | 2024-12-01 12:13 | XMS_ITS | Encounter Summary ---
Author Organization [facility] Address [address] [place] [address] Care Team Providers Care Outer Diameter Technician Name Role Phone Loreta Giraldo PA-C Primary Care Provi ronnie Ifrah Callejas MD Unavailable [phone] Mary Cavanaugh MD Unavailable [phone] Jagdish Romo Unavailable Sammie Culver MD Unavailable [phone] Encounter Details Date Type Department Care Team (Late st Contact Info) Description 10/27/2024 Scanned Document [facility] EMERGENCY MED SCAN Emergency Medicine, Scan Social History Tobacco Use Types Packs/Day Years Used Date Smoking Tobacco: Never Smokeless Tobacco: Never Alcohol Use Standard Drinks/Week Comments Not Currently 0 (1 standard drink = 0.6 oz pur e alcohol) [facility] Utilities Answer Date Recorded In the past 12 months has [facility] Storefront, gas, oil, or water Action threatened to shut off services in your home? No 07/14/2024 Social Connection and Isolation Panel [NHANES] A nswer Date Recorded In a typical week, how many times do you talk on the phone with family, friends, or neighbors? Once a week 07/14/2024 Frequency of Social Gatherings with Friends and Family Not on file 07/14/2024 Attends [employer] Services Not on file 07/14 Active Member [...] any time in the past 12 m [facility], were you homeless or living in a [place] health care facility (including now)? No 07/14/2024 Physical Activity Answer [...] Info) Description 12/01/2024 1:40 PM EDT Consult [facility] Medical Weight Loss [address] [phone] Loreta Giraldo PA-C [address] [place] [address] Roxy Lanza, PEDIATRIC NURSE PRACTITIONER [address] [phone] 06/04/2025 11:30 AM EDT Office Visit [facility] [address] [place] [address] Loreta Giraldo PA-C [address] [place] [address] documented as of this encounter Visit Diagnoses Not on filedocumented in this encounter Care Teams Outer Diameter Technician Relationship Specialty Start Date End Date Loreta Giraldo PA-C [address] [place] [address] PCP - General Internal Medicine 09/11/23 Ifrah Callejas MD [address] [place] [address] [address] [place] [address] Referring Provider Allergy 11/10/23 Mary Cavanaugh MD [address] [place] [address] [address] [place] [address] Referring Provider Urology 11/10/23 Jagdish Romo [address] [place] [id number] Physical Medicine and Rehabilitation 11/10/23 Sammie Culver MD [address] [place], [place] [address] [address] Orthopedic Surgery-Scan 11/10/23 Dalton Murillo Physician Cardiology-Scan 10/07/23 Heidy Harrell [facility] Nurse Practitioner Gastroenterology 10/07/23 documented as of this encounter
--- OUTSIDE RECORDS SUMMARY | 2024-12-01 12:13 | XMS_ITS | Clinical Summary ---
Author Organization [address] Address [address] [place] [phone] Phone Care Team Providers Care Nurse Rn Bsn Name Role Phone Loreta Giraldo Primary Care Provider [phone] Encounters Date Type Department Care Team Description 10/05/2024 Lab Requisition [facility] - Main Lab [address] [place] [address] [place] [address] Gopal Cornejo MD Urinary tract infection, site not specified from Last 3 Months Surgical History Surgery Date Site/Laterality Comments APPENDECTOMY PROCEDURE: AK APPENDECTOMY OTHER SURGICAL HISTORY 05/2021 PROCEDURE: ---- OTHER ----; COMMENT: spine Social History Tobacco Use Types Packs/Day Years Used Date Smoking Tobacco: Never Alcohol Use Standard Drinks/Week Comments Never 0 (1 standard drink = 0.6 oz pur e alcohol) Comments Unknown Sex and Gender Information Value Date Recorded Sex Assigned at Not on file Legal Sex Female 4:01 PM EST Gender Identity Not on file Sexual Orientation Not on file Obstetrics History Last Filed Vital Signs Vital Sign Reading Time Taken Comments Blood Pressure 100/80 07/30/2023 1:16 PM EST Sit ting L Arm Pulse 68 07/30/2023 1:16 PM EST Temperature - - Respiratory Rate - - Oxygen Saturation - - Inhaled Oxygen Concentration - - Weight 85.3 kg (188 lb) 09/20/2023 2:35 PM EST Height 170.2 cm (5' 7 ) 09/20/2023 2:35 PM EST Body Mass Index 29.44 09/20/2023 2:35 PM EST Plan of Treatment Upcoming Encounters Date Type Department Care Team ([facility] Contact Info) Description 12/11/2024 10:00 AM EDT Evaluation Outpatient [address] [phone] Brody Schwab, CRISTIANE Health Maintenance Due Date Last Done Comments Breast Cancer Screening 1960 DTaP,Tdap,and Td Vaccines (1 - Tdap) 1981 Cervical Cancer Screening: P ap Smear 1983 Pneumococcal Vaccine: 50+ Ye ars (1 of 1 - PCV) 2012 Zoster Vaccines (1 of 2) 2012 Cholesterol Screening (Lipid Panel) 07/11/2022 Colorectal Cancer Screening: Colonoscopy 07/11/2022 Depression Screening 07/11/2022 HIV Screening 07/11/2022 Hepatitis C Screening 07/11/2022 Social Influencers of Health Screening 07/11/2022 COVID-19 Vaccine (2023-2 5 season) 2024 Influenza Vaccine (Season Ended) 2025 RSV Immunization Adult Patie nts (1 - 1-dose 75+ series) 2037 HIB Vaccines Aged Out No longer eligi ble based on patient's age to complete this topic HPV Vaccines Aged Out No longer eligi ble based on patient's age to complete this topic Hepatitis A Vaccines Aged Out No long er eligible based on patient's age to complete this topic Hepatitis B Vaccines Aged Out No long er eligible based on patient's age to complete this topic IPV Vaccines Aged Out No longer eligi ble based on patient's age to complete this topic MMR Vaccines Aged Out No longer eligi ble based on patient's age to complete this topic Meningococcal ACWY Vaccine Aged Out N o longer eligible based on patient's age to complete this topic Meningococcal B Vaccine Aged Out No l onger eligible based on patient's age to complete this topic Pneumococcal Vaccine: Pediat rics (0 to 5 Years) and At-Risk Patients (6 to 64 Years) Aged Out No longer eligible b ased on patient's age to complete this topic RSV Immunization Patients Un ronnie 20 months Aged Out No longer eligible b ased on patient's age to complete this topic Varicella Vaccines Aged Out No longer eligible based on patient's age to complete this topic Procedures Procedure Name Priority Date/Time Associated Diagnosis Comments CULTURE URINE Routine 10/05/2024 12:00 AM EST Urinary tract infection, site not specified from Last 3 Months Results * Culture urine (10/05/2024 12:00 AM EST) Culture, Urine No growth 10/06/2024 12:46 PM EST [facility] Urine Urine specimen obtained by clean catch procedure / Unknown 10/05/2024 10/05/2024 7:30 PM EST us Gopal Cornejo MD LAB MICROBIOLOGY - GENERA L ORDERABLES Final Result [facility] [address] [place] [address], [place] [phone] from Last 3 Months Insurance Kristy [facility] [place] [phone] MEDICARE [facility] Advance Directives Documents on File Type Date Recorded Patient Head Control Clerk Expl anation Health Care Decision (hx) 06/03/2021 AD HARE DIRECTIVE Health Care Decision (hx) 01/20/2013 AD HARE DIRECTIVE Health Care Decision (hx) 01/20/2013 AD HARE DIRECTIVE Health Care Decision (hx) 01/20/2013 AD HARE DIRECTIVE Health Care Decision (hx) 01/20/2013 AD HARE DIRECTIVE Health Care Decision (hx) 01/20/2013 AD HARE DIRECTIVE Health Care Decision (hx) 01/20/2013 AD HARE DIRECTIVE Health Care Decision (hx) 01/20/2013 AD HARE DIRECTIVE Health Care Decision (hx) 01/20/2013 AD HARE DIRECTIVE Health Care Decision (hx) 01/20/2013 AD HARE DIRECTIVE Health Care Decision (hx) 01/20/2013 AD HARE DIRECTIVE Health Care Decision (hx) 01/20/2013 AD HARE DIRECTIVE Health Care Decision (hx) 01/15/2013 AD HARE DIRECTIVE Health Care Decision (hx) 01/15/2013 AD HARE DIRECTIVE Health Care Decision (hx) 01/15/2013 AD HARE DIRECTIVE Health Care Decision (hx) 01/15/2013 AD HARE DIRECTIVE Health Care Decision (hx) 01/15/2013 AD HARE DIRECTIVE Health Care Decision (hx) 01/15/2013 AD HARE DIRECTIVE Health Care Decision (hx) 01/15/2013 AD HARE DIRECTIVE Health Care Decision (hx) 01/15/2013 AD HARE DIRECTIVE Health Care Decision (hx) 01/15/2013 AD HARE DIRECTIVE Health Care Decision (hx) 01/15/2013 AD HARE DIRECTIVE Health Care Decision (hx) 01/15/2013 AD HARE DIRECTIVE Care Teams Nurse Rn Bsn Relationship Specialty Start Date End Date Loreta Giraldo PA [address] [facility] [address] [facility] [place] [address] PCP - General 04/17/22
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
--- OUTSIDE RECORDS SUMMARY | 2024-12-01 12:13 | XMS_ITS | Data Portability ---
Author Organization [facility] Address [address] [address] Care Team Providers Care Steward[employer] Name Role Phone NONE, LISTED Primary Care Provider DAVID Gatica Referring Provider [phone] DAVID ESTRADA Neurosurgeon Assessment Encounter Date Assessment Date Assessment LastModified by Organization Details LastModified Time 03/08/2023 03/08/2023 The patient is doing well s/p acdf at c3-4. She will begin gentle range of motion and strengthening exercises. [email or web address] Not available 03/08/2023 21:19:04 09/13/2023 09/13/2023 Improving after a revision acdf c3-4. [email or web address] Not available 09/13/2023 16:56:35 03/20/2024 03/20/2024 Patient is 2 years status post lumbar fusion now with increasing mid to upper back pain that is worse with activity. [email or web address] Not available 03/20/2024 12:01:27 05/01/2024 05/01/2024 Patient with increasing lower back pain 3 years s/p L2/3 fusion with possible pseudoarthrosis. [email or web address] Not available 05/01/2024 14:31:56 07/06/2024 07/06/2024 Patient is 3 years status post L2-3 lateral and posterior fusion. She has increasing upper lower back pain likely consistent with adjacent level disc degeneration. [email or web address] Not available 07/06/2024 11:50:44 Plan of Treatment Reminders Order Date Submit Date Provider Last Modified By Organization Details Last Modified Time Details Appointments Telehealt h30 2024 04:00P M Bertin Champion MD Not available Not available Not available Lab None recorded. Referral physical therapist referral 2023 [email or web address] Not available 10/27/2024 11:13:05 Procedures None recorded. Surgeries None recorded. Imaging CT, lumbar spine, w/o contrast 2023 [email or web address] [facility] [address] [place] [address], [id number], 08/27/2024 11:36:22 XR, lumbar spine 2023 024 [email or web address] Not available 05/15/2024 09:04:21 Medication Orders tramadol 50 mg tablet 2023 [id number], [address] [place], [address], 07/06/2024 16:01:10 Medrol (Saad) 4 mg tablets in a dose pack 2023 [id number], [address] [facility], [place], [address], 07/06/2024 16:01:11 Patient TargetsNo targets recorded. Patient InstructionsNo instructions recorded. Reason for Referral Physical Therapist Referral for Degeneration of lumbar intervertebral disc Referring Physician: Bertin Champion, Neurosurgery, Encounter Date: 07/06/2024 Results Created Date Observation Date Name Description Value Unit Range Abnormal Flag Note LastModifiedBy Organization Detail LastModifiedTime 02/20/2002/18/2023 elect carlos blancgr am No observ ation record ed. [facility] Atention: Donn [address] [place], [address], 02/19/2023 12:49:03 02/21/20 23 02/20/2023 XR, cervi gucci spine , 2 or 3 view No observ ation record ed. [facility] Atention: Donn [address] [place], [address], 02/21/2023 09:56:43 03/09/20 23 03/08/2023 XR, cervi gucci spine , 2 or 3 view No observ ation record ed. [email or web address] Not Available 2022 08:29:29 09/13/19 24 09/13/2023 XR, lumba r spine No observ ation record ed. [email or web address] [facility] [address] [place], [address], 09/13/2023 15:29:36 09/13/19 24 09/13/2023 XR, lumba r spine No observ ation record ed. [email or web address] [facility] [address] [place], [address], 09/16/2023 10:24:11 09/13/19 24 09/13/2023 XR, cervi gucci spine , 2 or 3 view No observ ation record ed. [email or web address] Not Available 2023 10:29:43 03/21/20 24 03/20/2024 XR, cervi gucci spine , 2 or 3 view No observ ation record ed. [email or web address] [facility] [address] [place] [address], [id number], 03/23/2024 12:55:40 03/21/20 24 03/20/2024 XR, cervi gucci spine , 2 or 3 view No observ ation record ed. [email or web address] Not Available 2023 11:22:44 04/09/20 24 03/16/2024 CT, abdom en + pelvi s, w/o contr ast No observ ation record ed. [email or web address] [facility] [address], [place], [address], 04/09/2024 15:59:53 04/09/20 24 03/16/2024 CT, abdom en + pelvi s, w/o contr ast No observ ation record ed. [email or web address] [facility] [address], [place], [address], 04/09/2024 15:59:29 05/05/20 24 05/01/2024 XR, lumba r spine No observ ation record ed. [facility] (Medical Records) [address] [place], [address], 05/06/2024 14:12:06 05/05/20 24 05/01/2024 XR, lumba r spine No observ ation record ed. [facility] [address] [place], [address], 05/07/2024 14:02:14 05/06/20 24 05/04/2024 CT, lumba r spine , w/o contr ast No observ ation record ed. [facility] [address] [place], [address], 05/07/2024 10:01:59 05/07/20 24 05/04/2024 CT, lumba r spine , w/o contr ast No observ ation record ed. [facility] [address] [place], [address], 06/02/2024 10:53:48 Result Notes None recorded. Problems Name Problem SNOMED Code Status Onset Date Resolution Date Notes Provider Name and Address Organization Details Recorded Time Low back pain 175128600 Active 2016 Kendall kemp [facility] 7 15:20:42 Degenerat ion of lumbar intervert ebral disc 73385039 Active Manasa kemp [facility] 2 20:09:53 Spinal stenosis of lumbar region 97783689 Active Manasa kemp [facility] 2 20:10:20 Degenerat ion of cervical intervert ebral disc 01631903 Active High cervical region Manasa kemp [facility] 2 20:10:49 Lumbar spondylos is 651365855 Active Bilateral Manasa kemp, [facility] 2 20:11:16 Bilateral sacroilii tis 062971138720 99967 Active Manasa kemp, [facility] 2 20:11:31 Neck pain 09898944 Active Manasa kemp, [facility] 2 20:11:40 History of cervical spine fusion 642348644891 1 Active 2022 CRISTIANO Vazquez [address] [place], [address], [facility] 3 15:09:37 Problem Notes None recorded. Procedures Surgical History Date Name Laterality Status Provider Name and Address Organization Details Recorded Time 1 Generic Procedure Template completed Manasa Gibson NP [address] [place], [address], [facility] 05/12/2021 08:42:41 1 procedure completed Manasa Smith [facility] 02/14/20 22 20:17:27 7 fusion completed Manasa Smith [facility] 02/14/20 22 20:17:05 back surgery completed Kendall Harris [facility] ast 04/12/2017 15:19:34 Imaging Results Imaging Date Name Status LastModified by Organization Details LastModified Time 02/18/2023 electrocardiogram completed [facility] Atention: Donn [address] [place], [address], 02/19/2023 12:49:03 02/20/2023 XR, cervical spine, 2 or 3 view completed [facility] Atention: Donn [address] [place], [address], 02/21/2023 09:56:43 03/08/2023 XR, cervical spine, 2 or 3 view completed [facility] Information not available 03/11/2023 08:29:29 09/13/2023 XR, lumbar spine completed [facility] [address] [place], [address], 09/13/2023 15:29:36 09/13/2023 XR, lumbar spine completed [email or web address] [facility] [address] [place] [address], [address], 09/16/2023 10:24:11 09/13/2023 XR, cervical spine, 2 or 3 view completed Information not available 09/16/2023 10:29:43 03/20/2024 XR, cervical spine, 2 or [email or web address] [facility] [address] [place] [address], [address], 03/23/2024 12:55:40 03/20/2024 XR, cervical spine, 2 or 3 view completed Information not available 03/23/2024 11:22:44 03/16/2024 CT, abdomen + pelvis, w/o contrast completed [email or web address] [address], [place], [address], 04/09/2024 15:59:53 03/16/2024 CT, abdomen + pelvis, w/o contrast completed [email or web address] [facility] [address] [facility] [address], [place], [address], 04/09/2024 15:59:29 05/01/2024 XR, lumbar spine completed [email or web address] [facility] (Medical Records) [address] [place] [address], [address], 05/06/2024 14:12:06 05/01/2024 XR, lumbar spine completed [email or web address] [facility] [address] [place] [address], [address], 05/07/2024 14:02:14 05/04/2024 CT, lumbar spine, w/o contrast completed [email or web address] [facility] [address] [place], [address], 05/07/2024 10:01:59 05/04/2024 CT, lumbar spine, w/o contrast completed [facility] [address] [facility], [place], [address], 06/02/2024 10:53:48 Procedure Notes None recorded. Medical Equipment None Reported. Allergies No known drug allergies Medications Name Sig Start Date Stop Date Status Note LastModified by Organization Details LastModified Time cyclobenzap rine 10 mg tablet TK 1 T PO TID PRN 07/06 completed Not Available Not Available Not Available amoxicillin 500 mg capsule TAKE 1 TABLET BY MOUTH 4 TIMES A DAY UNTIL GONE 07/06 completed Not Available Not Available Not Available fluconazole 100 mg tablet TAKE 1 TABLET BY MOUTH EVERY DAY 07/06 completed Not Available Not Available Not Available doxycycline hyclate 100 mg capsule 07/06 completed Not Available Not Available Not Available trazodone 50 mg tablet TAKE 1 TABLET BY MOUTH EVERYDAY AT BEDTIME 07/06 completed Not Available Not Available Not Available cetirizine 10 mg tablet TK 1 T PO QD 07/06 completed Not Available Not Available Not Available atorvastati n 10 mg tablet TAKE 1 TABLET BY MOUTH EVERY DAY active Not Available Not Available No t Available cefpodoxime 200 mg tablet TAKE 1 TABLET BY MOUTH TWICE A DAY FOR 10 DAYS 07/06 completed Not Available Not Available Not Available cefpodoxime 100 mg tablet 07/06 completed Not Available Not Available Not Available ofloxacin 0.3 % eye drops 07/06 completed Not Available Not Available Not Available tizanidine 4 mg tablet TAKE 1 TABLET BY MOUTH THREE TIMES A DAY FOR SPASMS 07/06 completed Not Available Not Available Not Available fluconazole 150 mg tablet TAKE 1 TABLET BY MOUTH EVERY DAY FOR 1 DAY FOR FUNGAL OR YEAST INFECTION 07/06 completed Not Available Not Available Not Available ketotifen 0.025 % (0.035 %) eye drops INSTILL 1 DROP IN BOTH EYES TWICE DAILY X 2 WEEKS NEEDED 07/06 completed Not Available Not Available Not Available tolterodine ER 4 mg capsule,ext ended release 24 hr TAKE 1 CAPSULE BY MOUTH EVERY DAY 07/06 completed Not Available Not Available Not Available cephalexin 250 mg capsule TAKE ONE CAPSULE BY MOUTH EVERY DAY START AFTER COMPLETIN G 10 DAY COURSE OF CEFPODOXI ME 07/06 completed Not Available Not Available Not Available phenazopyri dine 200 mg tablet TAKE 1 TABLET BY MOUTH EVERY 8 HOURS NEEDED 07/06 completed Not Available Not Available Not Available ondansetron HCl 4 mg tablet TAKE 1 TABLET BY MOUTH EVERY DAY 07/06 completed Not Available Not Available Not Available bupivacaine HCl 0.5 % (5 mg/mL) injection solution USE DIRECTED (20 ML OF MEDICATIO N TO BE INSTILLED INTRAVESI JULIAN ORDERED IN PROVIDER' 'S OFFICE ONCE WEEKLY FOR 6 WEEKS. active Not Available Not Available No t Available prednisone 20 mg tablet TAKE 3 TABLETS BY MOUTH TODAY TAKE 2 TABLETS BY MOUTH DAILY X2DAYS TAKE 1 TABLET BY MOUTH DAILY X2DAYS TAKE ONE-HALF TABLET BY MOUTH X2DAYS 07/06 completed Not Available Not Available Not Available sertraline 100 mg tablet TAKE 1 TABLET BY MOUTH EVERY DAY 07/06 completed Not Available Not Available Not Available nystatin 500,000 unit tablet TAKE 1 TABLET BY MOUTH THREE TIMES DAILY 07/06 completed Not Available Not Available Not Available lidocaine HCl 2 % mucosal jelly 07/06 completed Not Available Not Available Not Available hydroxyzine HCl 50 mg tablet TAKE 1 TABLET BY MOUTH THREE TIMES A DAY active Not Available Not Available No t Available ciprofloxac in 250 mg tablet TAKE 1 TABLET BY MOUTH once DAILY active Not Available Not Available No t Available ciprofloxac in 500 mg tablet TAKE 1 TABLET BY MOUTH TWICE A DAY FOR 7 DAYS at nightime active Not Available Not Available No t Available sulfamethox azole 800 mg-trimetho prim 160 mg tablet TAKE 1 TABLET BY MOUTH TWICE DAILY FOR 5 DAYS 07/06 completed Not Available Not Available Not Available tramadol 50 mg tablet TAKE 1 TABLET BY MOUTH EVERY 6 HOURS 07/06 completed Not Available Not Available Not Available amitriptyli ne 50 mg tablet TK 1 T PO D HS 07/06 completed Not Available Not Available Not Available acetaminoph en 500 mg tablet TAKE 2 TABLET BY MOUTH EVERY 8 HOURS 07/06 completed Not Available Not Available Not Available amoxicillin 500 mg tablet TK 1 T PO QID UNTIL GONE 07/06 completed Not Available Not Available Not Available hydrocortis one acetate 25 mg rectal suppository USE 1 SUPPOSITO RY RECTALLY TWICE DAILY 07/06 completed Not Available Not Available Not Available ketorolac 10 mg tablet TAKE 1 TABLET BY MOUTH FOUR TIMES DAILY FOR 5 DAYS NEEDED FOR PAIN. NOT TO EXCEED 40 MG DAILY AND 5 DAYS DURATION FOR ALL DOSE FORMS 07/06 completed Not Available Not Available Not Available sodium bicarbonate 1 mEq/mL (8.4 %) intravenous solution BRING TO PROVIDERS OFFICE TO HAVE 10 ML INSTILLED INTRAVESI JULIAN ONCE A WEEK FOR 6 WEEKS 07/06 completed Not Available Not Available Not Available nortriptyli ne 25 mg capsule TAKE 1 CAPSULE BY MOUTH EVERY DAY NIGHTLY 07/06 completed Not Available Not Available Not Available meloxicam 7.5 mg tablet TK 1 T PO BID 2023 active Not Available Not Available Not Avai lable Mobic 15 mg tablet Take 1 tablet every day by oral route. 07/06 completed For pain Not Available Not Available Not Available oxycodone-a cetaminophe n 5 mg-325 mg tablet TAKE 1 TABLET BY MOUTH EVERY 6 HOURS NEEDED 07/06 completed Not Available Not Available Not Available hydrocortis one 2.5 % topical cream with perineal applicator APPLY RECTALLY TWICE A DAY 07/06 completed Not Available Not Available Not Available methenamine hippurate 1 gram tablet TAKE 1 TABLET BY MOUTH TWICE DAILY 07/06 completed Not Available Not Available Not Available amitriptyli ne 25 mg tablet TK 1 T PO QHS 07/06 completed Not Available Not Available Not Available lorazepam 0.5 mg tablet TAKE 1 TABLET BY MOUTH EVERY DAY AT BEDTIME NEEDED 07/06 completed Not Available Not Available Not Available desonide 0.05 % topical ointment 07/06 completed Not Available Not Available Not Available hyoscyamine ER 0.375 mg tablet,exte nded release,12 hr TAKE 1 TABLET BY MOUTH EVERY 12 HOURS 07/06 completed Not Available Not Available Not Available hydrocortis one-acetic acid 1 %-2 % ear drops 07/06 completed Not Available Not Available Not Available trazodone 100 mg tablet 07/06 completed Not Available Not Available Not Available dicyclomine 20 mg tablet TK 1 T PO 2 TO 4 TIMES A DAY 07/06 completed Not Available Not Available Not Available amitriptyli ne 10 mg tablet TK 1 T PO HS 07/06 completed Not Available Not Available Not Available diazepam [address] 1 T VAGINALLY FOR LEVATOR SPASM QHS 07/06 completed Not Available Not Available Not Available dexamethaso ne 2 mg tablet TAKE 1 TABLET BY MOUTH THREE TIMES A DAY 07/06 completed Not Available Not Available Not Available cephalexin 500 mg capsule TAKE 1 CAPSULE BY MOUTH TWICE A DAY 07/06 completed Not Available Not Available Not Available pantoprazol e 40 mg tablet,alvarez yed release 07/06 completed Not Available Not Available Not Available erythromyci n 5 mg/gram (0.5 %) eye ointment 07/06 completed Not Available Not Available Not Available hyoscyamine sulfate 0.125 mg tablet TAKE 1 TABLET BY MOUTH 4 TIMES A DAY NEEDED FOR SPASM 07/06 completed Not Available Not Available Not Available nortriptyli ne 10 mg capsule TAKE 1 CAPSULE BY MOUTH AT BEDTIME 07/06 completed Not Available Not Available Not Available clotrimazol e-betametha sone 1 %-0.05 % topical cream APPLY TOPICALLY TO THE AFFECTED AND SURROUNDI NG AREAS TWICE DAILY IN THE MORNING AND IN THE EVENING FOR 2 WEEKS 07/06 completed Not Available Not Available Not Available nystatin-tr iamcinolone 100,000 unit/g-0.1 % topical cream APPLY TOPICALLY TO THE AFFECTED AREA TWICE DAILY FOR 10 DAYS 07/06 completed Not Available Not Available Not Available nitroglycer in 0.[address] 1 TABLET UNDER THE TONGUE EVERY 5 MINUTES NEEDED FOR CHEST PAIN. 07/06 completed Not Available Not Available Not Available docusate sodium 100 mg capsule TAKE 1 CAPSULE BY MOUTH EVERY DAY 07/06 completed Not Available Not Available Not Available omeprazole 20 mg capsule,del ayed release TAKE 1 CAPSULE BY MOUTH EVERY DAY 30 MINUTES BEFORE MORNING MEAL 07/06 completed Not Available Not Available Not Available chlordiazep oxide-clidi nium 5 mg-2.5 mg capsule TAKE 1 CAPSULE BY MOUTH THREE TIMES DAILY BEFORE MEALS 07/06 completed Not Available Not Available Not Available hydrocortis one 2.5 % topical cream JORGE ALBERTO EXT AA BID FOR 5 DAYS 07/06 completed Not Available Not Available Not Available hydroxyzine HCl 25 mg tablet TAKE 1 TO 2 TABLETS BY MOUTH AT BEDTIME FOR SLEEP 07/06 completed Not Available Not Available Not Available bisacodyl 5 mg tablet,alvarez yed release TAKE 2 TABLETS BY MOUTH DAILY NEEDED FOR CONSTIPAT ION 07/06 completed Not Available Not Available Not Available zolpidem 5 mg tablet active Not Available Not Available No t Available mirtazapine 15 mg tablet 07/06 completed Not Available Not Available Not Available diazepam 10 mg tablet TAKE 1 TABLET VAGINALLY AT BEDTIME NEEDED 07/06 completed Not Available Not Available Not Available heparin (porcine) 20,000 unit/mL injection solution INSERT 2 VIALS PER URETHRA FOR BLADDER INSTILLLA TIONS DIRECTED NEEDED VIA CATHETER 07/06 completed Not Available Not Available Not Available ibuprofen 600 mg tablet TAKE 1 TABLET BY MOUTH EVERY 8 HOURS WITH FOOD FOR 7 DAYS NEEDED FOR FEVER 07/06 completed Not Available Not Available Not Available cefuroxime axetil 500 mg tablet TAKE 1 TABLET BY MOUTH TWICE A DAY 07/06 completed Not Available Not Available Not Available estradiol 0.01% (0.1 mg/gram) vaginal cream INSERT 1 GRAM VAGINALLY TWICE PER WEEK 07/06 completed Not Available Not Available Not Available zolpidem 10 mg tablet TAKE 1 TABLET BY MOUTH AT BEDTIME NEEDED FOR INSOMNIA 07/06 completed Not Available Not Available Not Available methylpredn isolone 4 mg tablets in a dose pack TAKE 1 DOSE PK EVERY DAY BY ORAL ROUTE DIRECTED. 07/06 completed Not Available Not Available Not Available albuterol sulfate HFA 90 mcg/actuati on aerosol inhaler INHALE 1 PUFF BY MOUTH EVERY 6 HOURS NEEDED 07/06 completed Not Available Not Available Not Available celecoxib 100 mg capsule TAKE 1 CAPSULE BY MOUTH TWICE A DAY NEEDED 07/06 completed Not Available Not Available Not Available morphine 15 mg immediate release tablet TAKE 1 TABLET BY MOUTH EVERY 8 HOURS NEEDED FOR PAIN 07/06 completed Not Available Not Available Not Available betamethaso ne dipropionat e 0.05 % topical ointment 07/06 completed Not Available Not Available Not Available ondansetron 4 mg disintegrat ing tablet TAKE 1 TABLET BY MOUTH 3 TIMES A DAY NEEDED FOR NAUSEA VOMITING FOR 30 DAYS 07/06 completed Not Available Not Available Not Available sertraline 50 mg tablet 07/06 completed Not Available Not Available Not Available dicyclomine 10 mg capsule TAKE 1 CAPSULE BY MOUTH 4 TIMES A DAY FOR 14 DAYS NEEDED FOR ABDOMINAL CRAMPING 07/06 completed Not Available Not Available Not Available diazepam 5 mg tablet TAKE 1 TABLET BY MOUTH EVERYDAY AT BEDTIME 07/06 completed Not Available Not Available Not Available amoxicillin 875 mg-potassiu m clavulanate 125 mg tablet TAKE 1 TABLET BY MOUTH TWICE DAILY WITH FOOD FOR 10 DAYS FOR INFECTION 07/06 completed Not Available Not Available Not Available clindamycin phosphate 1 % topical solution 1 APPLICATI ON EXTERNALL Y TWICE A DAY 07/06 completed Not Available Not Available Not Available oxycodone 5 mg tablet TAKE 1 TABLET BY MOUTH EVERY 6 HOURS NEEDED FOR PAIN FOR BREAKTHRO UGH PAIN 07/06 completed Not Available Not Available Not Available Botox 100 unit injection 07/06 completed Not Available Not Available Not Available neomycin 3.5 mg/g-polymy celio B 10,000 unit/g-dexa meth 0.1 % eye oint 07/06 completed Not Available Not Available Not Available azithromyci n 500 mg tablet TAKE 1 TABLET BY MOUTH TWICE A DAY 07/06 completed Not Available Not Available Not Available escitalopra m 10 mg tablet 07/06 completed Not Available Not Available Not Available cyclobenzap rine 5 mg tablet TAKE 1 TABLET 3 TIMES A DAY BY ORAL ROUTE. 07/06 completed Not Available Not Available Not Available nitrofurant oin monohydrate /macrocryst als 100 mg capsule TAKE 1 CAPSULE BY MOUTH TWICE DAILY FOR 5 DAYS 07/06 completed Not Available Not Available Not Available lubiproston e 24 mcg capsule TAKE 1 CAPSULE BY MOUTH TWICE A DAY 07/06 completed Not Available Not Available Not Available lidocaine (PF) 50 mg/5 mL (1 %) intravenous syringe INSERT 10 CC PER URETHRA FOR BLADDER INSTILLAT IONS DIRECTED. 07/06 completed Not Available Not Available Not Available lubiproston e 8 mcg capsule TAKE 1 CAPSULE BY MOUTH TWICE A DAY 07/06 completed Not Available Not Available Not Available bimatoprost 0.03 % drops with applicator, eyelash base 07/06 completed Not Available Not Available Not Available GaviLyte-G 236 gram-22.74 gram-6.74 gram-5.86 gram oral solution PER GI OFFICE INSTRUCTI ONS 07/06 completed Not Available Not Available Not Available Xifaxan 550 mg tablet TAKE 1 TABLET BY MOUTH 2 TIMES A DAY. 07/06 completed Not Available Not Available Not Available Hyophen 81.6 mg-0.12 mg-10.8 mg tablet TAKE 1 TABLET BY MOUTH EVERY 8 HOURS active Not Available Not Available No t Available Gel-One 30 mg/3 mL intra-artic ular syringe 07/06 completed Not Available Not Available Not Available Gemtesa 75 mg tablet TAKE 1 TABLET BY MOUTH EVERY DAY 07/06 completed Not Available Not Available Not Available Indicaid COVID-19 Ag Home Test kit FOLLOW INSTRUCTI ONS INCLUDED WITH THE PACKAGE. 07/06 completed Not Available Not Available Not Available Vitals Date Recorded Oxygen saturation Oxygen saturation in Arterial blood by Pulse oximetry Heart rate Body weight Body mass index (BMI) Body height Systolic blood pressure Diastolic blood pressure Provider Name and Address Organization Details Last Updated DateTime 4 98 % 98 % 72 /min 09774.2 2 g 28.3 kg/m2 170.18 cm 116 mm[Hg] 70 mm[Hg] Salma Shaw [facility] 4 11:40:19 Date Recorded Body height Heart rate Oxygen saturation Oxygen saturation in Arterial blood by Pulse oximetry Body mass index (BMI) Body weight Systolic blood pressure Diastolic blood pressure Provider Name and Address Organization Details Last Updated DateTime 4 170.18 cm 64 /min 92 % 92 % 29 kg/m2 49607.5 9 g 114 mm[Hg] 77 mm[Hg] [place] Amador [facility] 4 11:08:52 Social History Question Answer Notes LastModified by Organizat ion Details LastModified Time Tobacco Smoking Status Never Smoker Kendall kemp [facility] 04/12/2017 15:19:34 What Is Your Level Of Alcohol Consumption? Occasional [email or web address] Information not available 04/12/2017 Auto Related Injury? No [email or web address] Information not available 04/12/2017 What Is Your Level Of Caffeine Consumption? Moderate [email or web address] Information not available 04/12/2017 Which Illicit Or Recreational Drugs Have You Used? Remeron [email or web address] Information not available 04/12/2017 Which Of Your Hands Is Dominant? Left Information not available 04/12/2017 Marital Status [email or web address] Informatio n not available 04/12/2017 What Was The Date Of Your Most Recent Tobacco Screening? 04/12/2017 Information not available 03/04/2019 What Types Of Sporting Activities Do You Participate In? Volleyball [email or web address] Information not available 04/12/2017 Work Related Injury? No [email or web address] Information not available 04/12/2017 Sex: Unknown Functional Status None recorded. Mental Status None recorded. Family History Nothing Reported. Medical History Condition Response arthritis N gout N tuberculosis N asthma N ulcers N kidney disease N blood clots N bleeding disorder N atrial fibrillation N liver disease N GERD/reflux N diabetes N seizure disorder N heart condition N peripheral vascular disease N heart murmur N hypertension N other Y hepatitis N anxiety disorder N hypercholesterolemia N pulmonary embolism N has pacemaker N stroke N Gynecological HistoryNo gynecological history recorded. Obstetrics History GPAL:G 0 P 0 0 0 0 Past Encounters Encounter ID Performer Location Encounter Start Date Encounter Closed Date Diagnosis/Indication Diagnosis SNOMED-CT Code Diagnosis ICD10 Code Diagnosis Note [id number] GERSON LEÓN JR MD [facility] [address] [facility] [address] [place] [address] 04/12/2017 11:13:35 04/12/2017 16:04:57 [id number] Manasa Gibson NP [facility] COVID-19 TESTING CLINIC [address] [facility], [address] [place] [address] 05/12/2021 08:06:19 05/12/2021 12:42:25 Viral screening [id number] Z11.59 [id number] David Estrada MD [facility] [address] [address] 02/22/2022 11:49:28 02/22/2022 13:52:52 Degeneration of lumbar intervertebral disc [id number] M51.36 I recommend gentle stretching and exercise. All questions were answered. Degenerati on of cervical intervertebral disc 71633970 M50.30 She will resume normal activity as tolerated. [id number] David Estrada MD [facility] [address] [address] 11/09/2022 10:44:34 11/09/2022 12:35:04 Degeneration of cervical intervertebral disc [id number] M50.30 [id number] David Estrada MD [facility] [address] [address] 02/04/2023 13:41:30 02/04/2023 14:42:06 Degeneration of cervical intervertebral disc [id number] M50.30 I recommend a C3-4 anterior cervical diskectomy with allograft fusion. She would benefit from a stand alone graft. We discussed the natural history and pathophysi ology in great detail. We discussed the operative approach. We reviewed the images together. Risks and benefits were discussed in a gerson and candid manner. All questions were answered. Patient wishes to proceed with surgical interventi on. History of cervical spine fusion [id number] 101 Z98.1 Counseling was given regarding patient's diagnosis, prognosis, treatment options, risks, and alternativ es. These were discussed in detail using language appropriat e to this particular patient. Questions have been elicited and all questions have been answered to the patient's satisfacti on in understand able terms. Realistic reassuranc e has been given to the patient regarding any fears or anxieties expressed today. [id number] David Estrada MD [facility] [address] [address] 03/08/2023 11:56:29 03/08/2023 13:07:24 Degeneration of cervical intervertebral disc 02887997 M50.30 [id number] David Estrada MD [facility] [address] [address] 09/13/2023 11:01:15 09/13/2023 11:57:50 Degeneration of cervical intervertebral disc [id number] M50.30 Continue gentle range of motion and strengthen ing exercises. [id number] David Estrada MD [facility] [address] [place] [address] 03/20/2024 10:29:48 03/20/2024 12:08:44 Degeneration of lumbar intervertebral disc 33210085 M51.[address] scan to rule out pseudoarth rosis. We discussed the role of surgical interventi on and possible removal of hardware if her pain persist. We will continue to monitor symptoms. All of her questions were answered. Degenerati on of cervical intervertebral disc 38704073 M50.30 She will continue with current activity. No restrictio ns from our perspectiv e. All of her questions were answered [id number] Bertin Champion MD [facility] [address] [address] 05/01/2024 11:52:57 05/01/2024 13:58:08 Degeneration of lumbar intervertebral disc 87116131 M51.[address] scan without contrast. I recommend tramadol and medrol dose pack for pain. SE profile discussed. Lumbar flex/ext did not show movement. She may require extension of fusion in the future. All questions were answered. [id number] Bertin Champion MD [facility] [address] [place] [address] 07/06/2024 10:03:00 07/06/2024 13:09:18 Degeneration of lumbar intervertebral disc 46909494 M51.369 I recommend a course of physical therapy with focus on core strengthen ing. She will continue with conservati ve management . She will follow-up in 6 months with a telehealth visit and a repeat lumbar CT scan prior to that visit. All of her questions were answered. Health Concerns Section Related Observation LastModified by Organization Detai ls LastModified Time None Recorded Concern Status LastModified by Organization Details LastModified Time None Recorded Advance Directives Directive None Recorded Payers Encounter Date Sequence Insurance Name Policy Number Policy Uribe Covered Member ID Uribe Member ID Guarantor Name 03/08/2023 1 [facility]: [employer] [address] [id number] Nora Drake 09/13/2023 1 [facility]: [employer]EE PROGRAM 112 Milad Drake [id number] Nora Drake 03/20/2024 1 [facility]: [employer] 112 [address] Drake [id number] Nora Drake 05/01/2024 1 [facility]: [facility] EMPL[facility]EE PRO[facility] 112 Milad Drake [id number] Noar Drake 07/06/2024 1 [facility] EMPL[facility]EE PROGRAM 112 Mil[address] Drake [id number] Nora Drake Notes Date Note Type Note Provider Name and Address Organization Details Recorded Time 03/08/2023 text/html The patient unde rwent a revision cervical fusion surgery. She denies dysphagia and feels her pre-operative symptoms are greatly improved. David Estrada MD [address] [place] [address], [phone], [facility] 03/08/2023 21:19:19 09/13/2023 text/html Ms. Drake ret urns to the office for follow-up appointment. She is s/p ACDF C4-C7 performed in 01/2021. Today, she is in good spirits but rates her pain as a 6/10 and continues to have persistent neck pain. She describes the pain as primarily stiff and aching. She reports that her pain is worst when trying to sleep, sit for long periods of time, or drive. She does not take any medication or NSAIDs to manage the pain. She denies fever/chills. Ms. Drake returns to the office for follow-up appointment. She is s/p ACDF C4-C7 performed in 01/2021. Today, she is in good spirits but rates her pain as a 6/10 and continues to have persistent neck pain. She reports that her pain is worst when trying to sleep, sit for long periods of time, or drive. She does not take any medication or NSAIDs to manage the pain. She denies fever/chills. Ms. Drake returns to the office for follow-up appointment. She is s/p ACDF C4-C7 performed in 01/2021 and recent revision acdf C3-4. She has had resolution of her left arm pain. Her lower back pain is stable s/p revison for adjacent segment degeneration. Sleeping, sitting for long periods of time and driving casue sone mild discomfort. She does not take any medication or NSAIDs to manage the pain. David Estrada MD [address] [place] [address], [phone], [facility] 09/13/2023 16:57:55 03/20/2024 text/html Ms. Vidal hill urns to the office for follow-up appointment. She is s/p ACDF C4-C7 performed in 01/2021. She is status post lateral and posterior fusion L2-L3 with instrumentation removal 05/2021. She has done well for the past 3 years. She is walking for most of the day. Recently she has had increasing back pain with activity such as gardening or doing things around the house. She describes a dull, aching sensation at the top of her incision near her mid back. She has tried NSAIDs with only modest relief of pain. David Estrada MD [address] [place] [address], [phone], [facility] 03/20/2024 17:52:01 05/01/2024 text/html Ms. Vidal hill urns to the office for follow-up appointment. She She is status post lateral and posterior fusion L2-L3 with instrumentation removal 05/2021. She has done well for the past 3 years but now she has had severe lower back pain x 2 days. Pain is a 8/10 on pain scale. She denies any provocating event but movement makes her pain worse. She has had to sleep in a recliner and cannot get OOB without pain. She has tried NSAIDs with only modest relief of pain. She denies any radiculopathy. Since her last visit, we had recommend a lumbar CT scan without contrast. She is awaiting this and is currently scheduled. She denies any radiculopathy or weakness. Bertin Champion MD [address] [place] [address], [phone], [facility] 05/01/2024 14:37:49 07/06/2024 text/html Ms. Vidal hill urns to the office for follow-up. She is status post lateral and posterior fusion L2-L3 with instrumentation removal 05/2021. She has done well for the past 3 years but now she continues to have worsening lower back pain that is a 7/10 on pain scale. She denies any recent trauma or events that caused her pain. She denies radiculopathy. She has had to sleep in a recliner and cannot get OOB without pain. She has tried NSAIDs with only modest relief of pain. She had a lumbar CT scan which shows stable appearance of fusion with incomplete fusion up to L1 transverse process but no evidence of loss of fixation. She is also developed mild disc degeneration at L1-2 Bertin Champion MD [address] [place] [address], [phone], [facility] 07/06/2024 12:24:14 OBGyn Episode No OBEpisode recorded.
--- OUTSIDE RECORDS SUMMARY | 2024-12-01 12:13 | XMS_ITS | Encounter Summary ---
[place] [address] Care Team Providers Care Decorating Machine Tender Name Role Phone Loreta Giraldo PA-C Primary Care Provi ronnie Ifrah Callejas MD Unavailable Mary Cavanaugh MD Unavailable [phone] Jagdish Romo Unavailable Sammie Culver MD Unavailable [phone] Encounter Details Date Type Department Care Team (Late st Contact Info) Description 04/21/2024 Scanned Document [address] [phone] Loreta Giraldo PA-C 100 [place] [address] Social History Tobacco Use Types Packs/Day Years [...] Info) Description 12/01/2024 1:40 PM EDT Consult [facility] Medical Weight Loss [address] [address] Loreta Giraldo PA-C [address] [place] [address] Roxy Lanza, SEXTON HELPER 7 [facility] [address] [place] [phone] 06/04/2025 11:30 AM EDT Office Visit [facility] [address] [place] [address] Loreta Giraldo PA-C 100 [place] [address] documented as of this encounter Visit Diagnoses Not on filedocumented in this encounter Care Teams Decorating Machine Tender Relationship Specialty Start Date End Date Loreta Giraldo PA-C 100 [place] [address] PCP - General Internal Medicine 09/11/23 Ifrah Callejas MD [address] [place] [address] [address] [place] [address] Referring Provider Allergy 11/10/23 Mary Cavanaugh MD [address] [place] [address] [address] [place] [address] Referring Provider Urology 11/10/23 Jagdish Romo [address] [place] [address] Physical Medicine and Rehabilitation 11/10/23 Sammie Culver MD [address] [place] [address] Orthopedic Surgery-Scan 11/10/23 Dalton Murillo Physician Cardiology-Scan 10/07/23 Heidy Harrell [facility] Nurse Practitioner Gastroenterology 10/07/23 documented as of this encounter
--- OUTSIDE RECORDS SUMMARY | 2024-12-01 12:13 | XMS_ITS | Encounter Summary ---
Author Organization [facility] Address [address] [place] [address] Care Team Providers Care Bindery Chief Name Role Phone Loreta Giraldo Primary Care Provider [phone] Encounter Details Date Type Department Care Team (Late st Contact Info) Description 10/05/2024 Lab Requisition [facility] - Main Lab [address] [facility] [place] [address] Gopal Cornejo MD [address] [place] [address] Urinary tract infection, site not specified Social History Tobacco Use Types Packs/Day Years Used Date Smoking Tobacco: Never Alcohol Use Standard Drinks/Week Comments Never 0 (1 standard drink = 0.6 oz pur e alcohol) Comments Unknown Sex and Gender Information Value Date Recorded Sex Assigned at Not on file Legal Sex Female 4:01 PM EST Gender Identity Not on file Sexual Orientation Not on file documented as of this encounter Plan of Treatment Upcoming Encounters Date Type Department Care Team (Late st Contact Info) Description 12/11/2024 10:00 AM EDT Evaluation Outpatient Rehabilitation [address] [address] Brody Schwab, PT documented as of this encounter Procedures Procedure Name Priority Date/Time Associated Diagnosis Comments CULTURE URINE Routine 10/05/2024 12:00 AM EST Urinary tract infection, site not specified documented in this encounter Results * Culture urine (10/05/2024 12:00 AM EST) Culture, Urine No growth 10/06/2024 12:46 PM EST [facility] Urine Urine specimen obtained by clean catch procedure / Unknown 10/05/2024 10/05/2024 7:30 PM EST us Gopal Cornejo MD LAB MICROBIOLOGY - GENERA L ORDERABLES Final Result [facility] [address] [place] [address], documented in this encounter Visit Diagnoses Diagnosis Urinary tract infection, site not specified documented in this encounter Care Teams Bindery Chief Relationship Specialty Start Date End Date Loreta Giraldo PA [address] [place] [address] PCP - General 04/17/22 documented as of this encounter
--- OUTSIDE RECORDS SUMMARY | 2024-12-01 12:13 | XMS_ITS | Encounter Summary ---
Author Organization [facility] Address [address] [place] [address] Care Team Providers Care Dental Equipment Repairer Name Role Phone Loreta Giraldo PA-C Primary Care Provi ronnie Ifrah Callejas MD Unavailable [phone] Mary Cavanaugh MD Unavailable [phone] Jagdish Romo Unavailable Sammie Culver MD Unavailable [phone] Encounter Details Date Type Department Care Team (Late st Contact Info) Description 01/21/2024 Scanned Document [facility] UROLOGY SCAN Urology, Scan Social History Tobacco [...] Info) Description 12/01/2024 1:[address] [facility] Medical Weight Loss [address] [address] Loreta Giraldo PA-C [address] [place] [address] Roxy Lanza, SERICULTURE TEACHER [address] [address] 06/04/2025 11:30 AM EDT Office Visit [facility] [address] [place] [address] Loreat Giraldo PA-C [address] [place] [address] documented as of this encounter Visit Diagnoses Not on filedocumented in this encounter Care Teams Dental Equipment Repairer Relationship Specialty Start Date End Date Loreta Giraldo PA-C 100 [place] [address] PCP - General Internal Medicine 09/11/23 Ifrah Callejas MD [address] [facility] [address] [place] [address] Referring Provider Allergy 11/10/23 Mary Cavanaugh MD [address] [place] [address] [address] [place] [address] Referring Provider Urology 11/10/23 Jagdish Romo [address] [place] [address] Physical Medicine and Rehabilitation 11/10/23 Sammie Culver MD [address] [place] [address] Orthopedic Surgery-Scan 11/10/23 Dalton Murillo Physician Cardiology-Scan 10/07/23 Heidy Harrell [facility] Nurse Practitioner Gastroenterology 10/07/23 documented as of this encounter
--- OUTSIDE RECORDS SUMMARY | 2024-12-01 12:13 | XMS_ITS | Encounter Summary ---
Author Organization [facility] Address [address] [place] [address] Care Team Providers Care Internetworking Technician Name Role Phone Loreta Giraldo PA-C Primary Care Provi ronnie Ifrah Callejas MD Unavailable [phone] Mary Cavanaugh MD Unavailable [phone] Jagdish Romo Unavailable Sammie Culver MD Unavailable [phone] Encounter Details Date Type Department Care Team (Late st Contact Info) Description 09/25/2023 Scanned Document [facility] UROLOGY SCAN Urology, Scan Social History Tobacco [...] Info) Description 12/01/2024 1:40 PM EDT Consult [facility] Medical Weight Loss [address] [address] Loreta Giraldo PA-C [address] [place] [address] Roxy Lanza, CARPENTER'S ASSISTANT [address] [address] 06/04/2025 11:30 AM EDT Office Visit [facility] [address] [place] [address] Loreta Giraldo PA-C [address] [place] [address] documented as of this encounter Visit Diagnoses Not on filedocumented in this encounter Care Teams Internetworking Technician Relationship Specialty Start Date End Date Loreta Giraldo PA-C 100 [place] [address] PCP - General Internal Medicine 09/11/23 Ifrah Callejas MD [address] [facility] [address] [place] [address] Referring Provider Allergy 11/10/23 Mary Cavanaugh MD [address] [place] [address] [address] [place] [address] Referring Provider Urology 11/10/23 Jagdish Romo [address] [place] [address] Physical Medicine and Rehabilitation 11/10/23 Sammie Culver MD [address] [place] [address] Orthopedic Surgery-Scan 11/10/23 Dalton Murillo Physician Cardiology-Scan 10/07/23 Heidy Harrell [facility] Nurse Practitioner Gastroenterology 10/07/23 documented as of this encounter
--- OUTSIDE RECORDS SUMMARY | 2024-12-01 12:13 | XMS_ITS | Encounter Summary ---
[place] [address] Care Team Providers Care Cruise Counselor Name Role Phone Loreta Giraldo PA-C Primary Care Provi ronnie Ifrah Callejas MD Unavailable [phone] Mary Cavanaugh MD Unavailable [phone] Jagdish Romo Unavailable Sammie Culver MD Unavailable [phone] Encounter Details Date Type Department Care Team (Late st Contact Info) Description 04/21/2024 Scanned Document [address] [phone] Loreta Giraldo PA-C 100 [place] [address] Social History Tobacco Use Types Packs/Day Years [...] Info) Description 12/01/2024 1:40 PM EDT Consult [facility] Weight Loss [address] [address] Loreta Giraldo PA-C [address] [place] [address] Roxy Lanza, GRISTMILLER 7 [facility] [address] [place] [phone] 06/04/2025 11:30 AM EDT Office Visit [facility] [address] [place] [address] Loreta Giraldo PA-C 100 [place] [address] documented as of this encounter Visit Diagnoses Not on filedocumented in this encounter Care Teams Cruise Counselor Relationship Specialty Start Date End Date Loreta Giraldo PA-C 100 [place] [address] PCP - General Internal Medicine 09/11/23 Ifrah Callejas MD [address] [place] [address] [address] [place] [address] Referring Provider Allergy 11/10/23 Mary Cavanaugh MD [address] [place] [address] [address] [place] [address] Referring Provider Urology 11/10/23 Jagdish Romo [address] [place] [address] Physical Medicine and Rehabilitation 11/10/23 Sammie Culver MD [address] [place] [address] Orthopedic Surgery-Scan 11/10/23 Dalton Murillo Physician Cardiology-Scan 10/07/23 Heidy Harrell [facility] Nurse Practitioner Gastroenterology 10/07/23 documented as of this encounter
--- OUTSIDE RECORDS SUMMARY | 2024-12-01 12:13 | XMS_ITS | Encounter Summary ---
Author Organization [facility] Address [address] [place] [address] Care Team Providers Care Plumber Helper Name Role Phone Loreta Giraldo PA-C Primary Care Provi ronnie Ifrah Callejas MD Unavailable [phone] Mary Cavanaugh MD Unavailable [phone] Jagdish Romo Unavailable Sammie Culver MD Unavailable [phone] Reason for Visit * Reason Comments Medication Refill Encounter Details Date Type Department Care Team (Late st Contact Info) Description 11/05/2023 Refill [facility] [address] [place] [phone] Loreta Giraldo PA-C 100 [place] [address] Social History Tobacco Use Types Packs/Day Years [...] Info) Description 12/01/2024 1:40 PM EDT Consult [facility] Medical Weight Loss [address] [address] Loreta Giraldo PA-C 100 [place] [address] Roxy Lanza, SENIOR BEHAVIORAL SCIENTIST [address] [address] 06/04/2025 11:30 AM EDT Office Visit [facility] [address] [place] [address] Loreta Giraldo PA-C [address] [place] [address] documented as of this encounter Visit Diagnoses Not on filedocumented in this encounter Care Teams Plumber Helper Relationship Specialty Start Date End Date Loreta Giraldo PA-C [address] [place] [address] PCP - General Internal Medicine 09/11/23 Ifrah Callejas MD [address] [place] [address] [address] [place] [address] Referring Provider Allergy 11/10/23 Mary Cavanaugh MD [address] [place] [address] 1 [place] [address] Referring Provider Urology 11/10/23 Jagdish Romo [address] [place] [address] Physical Medicine and Rehabilitation 11/10/23 Sammie Culver MD [address] [place] [address] Orthopedic Surgery-Scan 11/10/23 Dalton Murillo Physician Cardiology-Scan 10/07/23 Heidy Harrell [facility] Nurse Practitioner Gastroenterology 10/07/23 documented as of this encounter
--- OUTSIDE RECORDS SUMMARY | 2024-12-01 12:13 | XMS_ITS | Continuity of Care Document ---
Author Organization [facility] Address [address] [place] [address]- Care Team Providers Care Thickener Operator Name Role Phone Enzo QUINONEZ, Loreta Carr Primary Care Physician [place] [facility] [place] 11[place]29/24 [facility] [address] [place] [address] Encounter Type: Triage Allergies, Adverse Reactions, Alerts Substance Criticality Severity Reaction Reaction Severity Status morphine nausea and dizziness Active sulfa drugs Skin rash facial rash Active Immunizations Given and Recorded Vaccine Date Status Refusal Reason Tet/Diphth/Acel, Pertussis (oldterm) 09/04/07 Give n Medications lubiprostone 8 mcg oral capsule 1 capsule = 8 mcg, By Mouth, Daily, # 60 tablet, 3 Refills, Maintenance, 11/18/24 2:03:00 AM EDT, Capsule, [facility], Partial fill upon patient request if the prescription is for a schedule II opioid drug., 169, cm, 11/09/24 14:27:00 EDT, Height, 87.3, kg, 10/27/24 0:25:00 EDT, DryWeight Start Date: 11/18/24 Status: Ordered Quantity: 60.0 Unit: tablet Repeat number: 4 [facility]patient [facility], See Instructions, # 1 each, Refills 0, Tot. 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 S/P artificial disc placement 2001 in [facility] Social History Social History Type Response Smoking Status Never smoker entered on: 06/29/16 Sex Sex Representation Female (finding) Implantable Device List Procedure Provider Procedure Date Device Type Site Repair Hernia Incisional Laparoscopic Gael Darden MD 05/14/24 Unknown Other Device Identifier Serial Number Lot or Batch Number Manufacturing Date Expiration Date Distinct Identification Code MRI Safety Implantable Status Assigning Authority Unknown Unknown [id number] Unknown 10/09/25 Unknown Unknown Active Unknown Procedure Provider Procedure Date Device Type Site Repair Hernia Incisional Laparoscopic Gael Darden MD 05/14/24 Unknown Other Device Identifier Serial Number Lot or Batch Number Manufacturing Date Expiration Date Distinct Identification Code MRI Safety Implantable Status Assigning Authority Unknown Unknown [id number] Unknown 08/08/25 Unknown Unknown Active Unknown Patient Care team information Care Team Personnel Name: Augie Lockwood RN Position: [facility] RN Member Role: Primary Care Nurse Name: Alondra Kraus LPN Position: S RN Member Role: Primary Care Nurse Name: Lilia Koch RN Position: S RN Member Role: Primary Care Nurse Name: Jimena Garcia RN Position: [facility] RN Member Role: Primary Care Nurse Name: Rani Jimenes RN Position: S RN Member Role: Primary Care Nurse Name: Saniya Lazaro RN Position: S RN Member Role: Primary Care Nurse Name: Loreta Daniel Position: Reference Physician Member Role: PCP Address: [address] [place] [address] Telecom: Care Team Related Persons Name: GAURAV HANCOCK Name: PINKY HANCOCK Name: PINKY HANCOCK Name: BUFFY HANCOCK Name: TY ZAVALA Insurance Providers Guarantor name: PINKY HANCOCK Health Plan Information #: 1 Payer: MEDICARE PART B OUTPT Member Number: NA Policy Number: NA Group Number: NA Health Plan Information #: 2 Payer: [employer] Member Number: NA Policy Number: NA Group Number: NA
--- OUTSIDE RECORDS SUMMARY | 2024-12-01 12:13 | XMS_ITS | Encounter Summary ---
Author Organization [facility] Address [address] [place] [address] Care Team Providers Care Germination Testing Manager Name Role Phone Loreta Giraldo PA-C Primary Care Provi ronnie Ifrah Callejas MD Unavailable [phone] Mary Cavanaguh MD Unavailable [phone] Jagdish Romo Unavailable Sammie Culver MD Unavailable [phone] Encounter Details Date Type Department Care Team (Late st Contact Info) Description 04/22/2024 Scanned Document [facility] GASTRO SCAN Provider, Generic External Data Social History [...] PM EDT Consult [facility] Medical Weight Loss [address] [address] Loreta Giraldo PA-C [address] [place] [address] Roxy Lanza, PROJECT MGR [address] [address] 06/04/2025 11:30 AM EDT Office Visit [facility] [address] [place] [address] Loreta Giraldo PA-C [address] [place] [address] documented as of this encounter Visit Diagnoses Not on filedocumented in this encounter Care Teams Germination Testing Manager Relationship Specialty Start Date End Date Loreta Giraldo PA-C [address] [place] [address] PCP - General Internal Medicine 09/11/23 Ifrah Callejas MD [address] [facility] [address] [place] [address] Referring Provider Allergy 11/10/23 Mary Cavanaugh MD [address] [place] [address] [address] [place] [address] Referring Provider Urology 11/10/23 Jagdish Romo [address] [place] [address] Physical Medicine and Rehabilitation 11/10/23 Sammie Culver MD [address] [place] [address] Orthopedic Surgery-Scan 11/10/23 Dalton Murillo Physician Cardiology-Scan 10/07/23 Heidy Harrell [facility] Nurse Practitioner Gastroenterology 10/07/23 documented as of this encounter
--- OUTSIDE RECORDS SUMMARY | 2024-12-01 12:13 | XMS_ITS | Encounter Summary ---
Author Organization [facility] Address [address] [place] [address] Care Team Providers Care Foundation Digger Name Role Phone Loreta Giraldo PA-C Primary Care Provi ronnie Ifrah Callejas MD Unavailable [phone] Mary Cavanaugh MD Unavailable [phone] Jagdish Romo Unavailable Sammie Culver MD Unavailable Encounter Details Date Type Department Care Team (Late st Contact Info) Description 11/21/2023 Scanned Document [facility] SC[facility] Urology, Scan Social History Tobacco [...] Info) Description 12/01/2024 1:40 PM EDT Consult [facility] Medical Weight Loss [address] [address] Loreta Giraldo PA-C [address] [place] [address] Roxy Lanza, FIVE PIECE EXPANSION MAKER HAND [address] [address] 06/04/2025 11:30 AM EDT Office Visit [facility] [address] [place] [address] Loreta Giraldo PA-C [address] [place] [address] documented as of this encounter Visit Diagnoses Not on filedocumented in this encounter Care Teams Foundation Digger Relationship Specialty Start Date End Date Loreta Giraldo PA-C [address] [place] [address] PCP - General Internal Medicine 09/11/23 Ifrah Callejas MD [address] [facility] [address] [place] [address] Referring Provider Allergy 11/10/23 Mary Cavanaugh MD [address] [place] [address] [address] [place] [address] Referring Provider Urology 11/10/23 Jagdish Romo [address] [place] [address] Physical Medicine and Rehabilitation 11/10/23 Sammie Culver MD [address] [place] [address] Orthopedic Surgery-Scan 11/10/23 Dalton Murillo Physician Cardiology-Scan 10/07/23 Heidy Harrell [facility] Nurse Practitioner Gastroenterology 10/07/23 documented as of this encounter
--- OUTSIDE RECORDS SUMMARY | 2024-12-01 12:13 | XMS_ITS | Encounter Summary ---
Author Organization [facility] Address [address] [place] [address] Care Team Providers Care Twenty One Dealer Name Role Phone Loreta Giraldo PA-C Primary Care Provi ronnie Ifrah Callejas MD Unavailable [phone] Mary Cavanaugh MD Unavailable [phone] Jagdish Romo Unavailable Sammie Culver MD Unavailable [phone] Encounter Details Date Type Department Care Team (Late st Contact Info) Description 11/12/2023 Scanned Document [facility] UROLOGY SCAN Urology, Scan Social History Tobacco [...] Info) Description 12/01/2024 1:40 PM EDT [facility] [address] [address] Loreta Giraldo PA-C [address] [place] [address] Roxy Lanza, PEDIATRIC UROLOGIST [address] [address] 06/04/2025 11:30 AM EDT Office Visit [facility] [address] [place] [address] Loreta Giraldo PA-C [address] [place] [address] documented as of this encounter Visit Diagnoses Not on filedocumented in this encounter Care Teams Twenty One Dealer Relationship Specialty Start Date End Date Loreta Giraldo PA-C [address] [place] [address] PCP - General Internal Medicine 09/11/23 Ifrah Callejas MD [address] [facility] [address] [place] [address] Referring Provider Allergy 11/10/23 Mary Cavanaugh MD [address] [place] [address] [address] [place] [address] Referring Provider Urology 11/10/23 Jagdish Romo [address] [place] [address] Physical Medicine and Rehabilitation 11/10/23 Sammie Culver MD [address] [place] [address] Orthopedic Surgery-Scan 11/10/23 Dalton Murillo Physician Cardiology-Scan 10/07/23 Heidy Harrell [facility] Nurse Practitioner Gastroenterology 10/07/23 documented as of this encounter
--- OUTSIDE RECORDS SUMMARY | 2024-12-01 12:13 | XMS_ITS | Encounter Summary ---
Author Organization [facility] Address [address] [place] [address] Care Team Providers Care Industrial Controls Technician Name Role Phone Loreta Giraldo PA-C Primary Care Provi ronnie Ifrah Callejas MD Unavailable [phone] Mary Cavanaugh MD Unavailable [phone] Jagdish Romo Unavailable Sammie Culver MD Unavailable [phone] Encounter Details Date Type Department Care Team (Late st Contact Info) Description 09/15/2024 Scanned Document [facility] UROLOGY SCAN Urology, Scan Social History Tobacco Use Types Packs/Day Years Used Date Smoking Tobacco: Never Smokeless Tobacco: Never Alcohol Use Standard Drinks/Week Comments Not Currently 0 (1 standard drink = 0.6 oz pur e alcohol) [facility] Utilities Answer Date Recorded In the past 12 months has [facility] [employer], gas, oil, or water [employer] threatened to shut off services in your home? No 07/14/2024 Social Connection and Isolation Panel [NHANES] A nswer Date Recorded In a typical week, how many times do you talk on the phone with family, friends, or neighbors? Once a week 07/14/2024 Frequency of Social Gatherings with Friends and Family Not on file 07/14/2024 Attends [employer] Services Not on file 07/14 Active Member [...] any time in the past 12 m [facility], were you homeless or living in a retirement (including now)? No 07/14/2024 Physical Activity Answer [...] 12/01/2024 1:40 PM EDT Consult [facility] Medical Weight Loss [address] [phone] Loreta Giraldo PA-C [address] [place] [address] Roxy Lanza, HYDRAULIC STRAINER OPERATOR [address] [phone] 06/04/2025 11:30 AM EDT Office Visit [facility] [address] [place] [address] Loreta Giraldo PA-C [address] [place] [address] documented as of this encounter Visit Diagnoses Not on filedocumented in this encounter Care Teams Industrial Controls Technician Relationship Specialty Start Date End Date Loreta Giraldo PA-C [address] [place] [address] PCP - General Internal Medicine 09/11/23 Ifrah Callejas MD [address] [place] [address] [address] [place] [address] Referring Provider Allergy 11/10/23 Mary Cavanaugh MD [address] [place] [address] [address] [place] [address] Referring Provider Urology 11/10/23 Jagdish Romo [address] [place] [address] Physical Medicine and Rehabilitation 11/10/23 Sammie Culver MD [address] [place], [place] [address] [address] Orthopedic Surgery-Scan 11/10/23 Dalton Murillo Physician Cardiology-Scan 10/07/23 Heidy Harrell [facility] Nurse Practitioner Gastroenterology 10/07/23 documented as of this encounter
--- OUTSIDE RECORDS SUMMARY | 2024-12-01 12:13 | XMS_ITS | Continuity of Care Document ---
Author Name [facility] Organization [facility] Care Team Providers Care Spooling Supervisor Name Role Phone [facility] Unavailable Unavailable Social History Combined list of available smoking, tobacco, and other social history from Department of Defense and Veterans Affairs facilities. Social History Type Response Date Comment Sourc e This section is an empty social history section. [facility]
--- OUTSIDE RECORDS SUMMARY | 2024-12-01 12:13 | XMS_ITS | Continuity of Care Document ---
Author Organization [facility] Address [address] [place] [address]- Care Team Providers Care Friction Paint Machine Tender Name Role Phone Enzo QUINONEZ, Loreta Carr Primary Care Physician ( [phone] Encounter [facility] AC[facility] R [id number] Date(s): 10/30/24 - 11/29/24 [facility] [address] [place] [address] Encounter Type: Triage Allergies, Adverse Reactions, Alerts [...] disease. S/P artificial disc placement 2001 in [facility] Social History Social History Type Response Smoking Status Never smoker entered on: 06/29/16 Sex Sex Representation Female (finding) Implantable Device List Procedure Provider Procedure Date Device Type Site Repair Hernia Incisional Laparoscopic Gael Darden MD 05/14/24 Unknown Other Device Identifier Serial Number Lot or Batch Number Manufacturing Date Expiration Date Distinct Identification Code MRI Safety Implantable Status Assigning Authority Unknown Unknown [id number] Unknown 10/09/25 Unknown Unknown Active Unknown Procedure Provider Procedure Date Device Type Site Repair Hernia Incisional Laparoscopic Gael Darden MD 05/14/24 Unknown Other Device Identifier Serial Number Lot or Batch Number Manufacturing Date Expiration Date Distinct Identification Code MRI Safety Implantable Status Assigning Authority Unknown Unknown [id number] Unknown 08/08/25 Unknown Unknown Active Unknown Patient Care team information Care Team Personnel Name: Augie Lockwood RN Position: [facility] RN Member Role: Primary Care Nurse Name: Alondra Kraus LPN Position: S RN Member Role: Primary Care Nurse Name: Lilia Koch RN Position: S RN Member Role: Primary Care Nurse Name: Jimena Garcia RN Position: [facility] RN Member Role: Primary Care Nurse Name: Rani Jimenes RN Position: S RN Member Role: Primary Care Nurse Name: Saniya Lazaro RN Position: S RN Member Role: Primary Care Nurse Name: Loreta Daniel Position: Reference Physician Member Role: PCP Address: [address] [place] [address] Telecom: Care Team Related Persons Name: GAURAV HANCOCK Name: PIKNY HANCOCK Name: PINKY HANCOCK Name: BUFFY HANCOCK Name: TY ZAVALA Insurance Providers Guarantor name: PINKY HANCOCK Health Plan Information #: 1 Payer: MEDICARE PART B OUTPT Member Number: NA Policy Number: NA Group Number: NA Health Plan Information #: 2 Payer: [employer] Member Number: NA Policy Number: NA Group Number: NA
--- OUTSIDE RECORDS SUMMARY | 2024-12-01 12:14 | XMS_ITS | Clinical Summary ---
Author Organization [facility] Address [address] [place] [address] Care Team Providers Care High School Science Teacher Name Role Phone Loreta Giraldo PA-C Primary Care Provi ronnie Ifrah Callejas MD Unavailable [phone] Mary Cavanaugh MD Unavailable [phone] Jagdish Romo Unavailable Sammie Culver MD Unavailable [phone] Allergies Active Allergy Reactions Criticality Noted Date Comments Amoxicillin Rash/Dermatitis Medium 06/01/2022 Morphine Unknown/Patient and Family Unable to Define Medium 11/10/2023 Morphine And Codeine Nausea And Vomiting Low 2022 Sulfa Antibiotics Unknown/Patient and Family Unable to Define Medium 11/10/2023 Medications atorvastatin (LIPITOR) 10 MG tabletIndications :Hyperlipidemia, unspecified hyperlipidemia type Take 1 tablet (10 mg total) by mouth daily. 90 tablet 1 024 Active estradiol (ESTRACE) 0.01 % vaginal cream INSERT 1/2 GRAM VAGINALLY ONCE DAILY FOR 7 DAYS, THEN 1/2 GRAM 3 TIMES PER WEEK DIRECTED 024 Active zolpidem (AMBIEN) 5 MG tabletIndications :Primary insomnia TAKE 1 TABLET BY MOUTH NIGHTLY NEEDED FOR SLEEP 30 tablet 025 Active meclizine (ANTIVERT) 12.5 MG tabletIndications :Dizziness Take 1 tablet (12.5 mg total) by mouth 3 (three) times a day as needed for dizziness. 30 tablet 025 2024 Active zolpidem (AMBIEN) 5 MG tabletIndications :Primary insomnia Take 1 tablet (5 mg total) by mouth nightly as needed for sleep. 30 tablet 025 2024 Discontinued nitrofurantoin monohydrate (Macrobid) 100 MG capsule Take 1 capsule (100 mg total) by mouth 2 (two) times a day with meals. Dispense generic equivalent of MACROBID 2024 Discontinued meclizine (ANTIVERT) 12.5 MG tablet Take 1 tablet (12.5 mg total) by mouth. 025 2024 Discontinued(M ed List Clean-up/Old Med - No E-Cancel/No AVS) Active Problems Problem Noted Date Diagnosed Date Overactive bladder 12/11/2023 12/11/2023 Class 1 obesity 12/11/2023 12/11/2023 Degeneration of lumbar intervertebral disc 11/0911/10/2023 Overview (11/10/2023): High cervical region Bilateral sacroiliitis 11/10/2023 Spinal stenosis of lumbar region 11/10/2023 11/10/2023 Lumbar spondylosis 11/10/2023 11/10/2023 Overview (11/10/2023): Bilateral Anxiety 11/10/2023 Jameson's esophagus without dysplasia 11/10/2023 Recurrent major depressive disorder, in partial remission 09/11/2023 Hyperlipidemia 09/11/2023 Weight gain 09/11/2023 Irritable bowel syndrome with constipation 09/11 Primary insomnia 09/11/2023 Dyspnea on exertion 09/11/2023 Low back pain 04/12/2017 11/10/2023 Chronic interstitial cystitis 06/06/2015 Overview (11/10/2023): Interstitial cystitis Encounters Date Type Department Care Team Description 12/01/2024 Orders Only [address] [place] [phone] Loreta Giraldo PA-C Dizziness (Primary Dx); Ear pain, bilateral; Ear pressure, bilateral 11/30/[address] [facility] [address] [facility] [place] [address] Loreta Giraldo PA-C Referral 11/25/2024 Orders Only [address] [address] Loreta Giraldo PA-C Dizziness (Primary Dx) 11/23/[address] [phone] Loreta Giraldo PA-C 11/18/2024 8:00 AM EDT Office Visit [address] [phone] Loreta Giraldo PA-C Dizziness (Primary Dx) 11/18/2024 Travel 11/16/[address] [phone] Loreta Giraldo PA-C Primary insomnia 11/10/2024 Scanned Document [facility] NEUROLOGY SCAN Neurology, Scan 11/05/2024 Orders Only [facility] [address] [place] [address], [place] [address] Primary Care, Scan 11/02/2024 11:30 AM EDT Office Visit [address] [phone] Loreta Giraldo PA-C Paresthesia (Primary Dx); Hyperlipidemia, unspecified hyperlipidemia type; IFG (impaired fasting glucose); Bilateral hand pain; Skin irritation; Primary insomnia; Class 1 obesity 11/02/2024 Travel 10/27/2024 [address]phone [address] [place] [place] [address] Loreta Giraldo PA-C Advice Only 10/27/2024 Scanned Document [facility] EMERGENCY MED SCAN Emergency Medicine, Scan 10/16/2024 [facility] [address] [facility] [address] [place] [address] Loreta Giraldo PA-C Primary insomnia 10/15/2024 [facility] [address] [facility] [address] [facility] [address] [place] [address] Loreta Giraldo PA-C Primary insomnia 10/05/2024 Orders Only [facility] [address] [facility] [place] [address] Obstetrics And Gynecology, Scan 09/15/2024 Scanned Document [facility] UROLOGY SCAN Urology, Scan 09/14/2024 [facility] [address] [facility] [address] [place] [address] Loreta Giraldo PA-C Primary insomnia from Last 3 Months Immunizations Immunization Administration Dates Next Due Tdap 05/22/2023,09/04/2007 Zoster Vaccine Recombinant (Shingrix) 02/08/2022 ,09/13/2021 Family History Medical History Relation Name Comments Colon polyps Sister Relation Name Status Comments Sister Social History Tobacco Use Types Packs/Day Years Used Date Smoking Tobacco: Never Smokeless Tobacco: Never Tobacco Cessation:Counseling Given: Not Answered Alcohol Use Standard Drinks/Week Comments Not Currently 0 (1 standard drink = 0.6 oz pur e alcohol) [facility] Utilities Answer Date Recorded In the past 12 months has e [employer], gas, oil, or water [employer] threatened to shut off services in your home? No 07/14/2024 Social Connection and Isolation Panel [NHANES] A nswer Date Recorded In a typical week, how many times do you talk on the phone with family, friends, or neighbors? Once a week 07/14/2024 Frequency of Social Gatherings with Friends and Family Not on file 07/14/2024 Attends Mormonism Services Not on file 07/14 Active Member [...] any time in the past 12 [facility], were you homeless or living in a detention (including now)? No 07/14/2024 Physical Activity Answer [...] Orientation Asexual 11/09/2023 10 :02 AM EDT Last Filed Vital Signs Vital Sign Reading Time Taken Comments Blood Pressure 102/70 11/18/2024 7:44 AM EDT Pulse 69 11/18/2024 7:44 AM EDT Temperature 36.1 ??C (97 ??F) 11/18/2024 7:44 AM EDT Respiratory Rate 17 11/18/2024 7:44 AM EDT Oxygen Saturation 96% 11/18/2024 7:44 AM EDT Inhaled Oxygen Concentration - - Weight 87.6 kg (193 lb 3.2 oz) 11/18/2024 7:44 A M EDT Height 170.2 cm (5' 7 ) 11/18/2024 7:44 AM EDT Body Mass Index 30.26 11/18/2024 7:44 AM EDT Plan of Treatment Upcoming Encounters Date Type Department Care Team (Late st Contact Info) Description 12/01/2024 1:40 PM EDT Consult [facility] [place] Medical Weight Loss [address] [address] Loreta Giraldo PA-C 100 [place] [address] Roxy Lanza, TIERA [address] [address] 06/04/2025 11:30 AM EDT Office Visit [facility] [address] [place] [address] Loreta Giraldo PA-C 100 [place] [address] Health Maintenance Due Date Last Done Comments Annual Wellness Visit 1980 Pap Smear (Ages 21-65) 1983 Pneumococcal Vaccines 50+ (1 of 1 - PCV) 2012 Influenza Vaccine 03/12/2024 06/07/2021, 04/12/2019, 07/12/2016 Physical 05/25/2025 05/25/2024, 05/25/2024 Mammogram 09/30/2026 09/30/2024, 08/28/2023 (Previously Completed) DTaP/Tdap/Td Vaccines (3 - Td or Tdap) 05/22/2033 05/22/2023, 09/04/2007 Colonoscopy 12/03/2033 12/04/2023 Zoster (Shingles) Vaccine Completed 2021, 09/13/2021 COVID-19 Vaccine Discontinued HIV Screening Discontinued Hepatitis B Vaccines Aged Out No long er eligible based on patient's age to complete this topic Hepatitis C Virus Screening Discontinued RSV Vaccine 60 years and older and Patients Discontinued Procedures Procedure Name Priority Date/Time Associated Diagnosis Comments MRI BRAIN W/O CONTRAST STAT 9:34 AM EDT Dizziness LAB RESULT Routine 11/04/2024 8:14 AM EDT IMAGING BREAST/BX/MAMMO Routine 09/30/19 9:17 AM EST HX GASTROENTEROLOGY COLONOSCOPY-SCAN Routine 12/04/2023 from Last 3 Months or Most Recently Relevant to Health Maintenance Results * MRI Brain w/o contrast (11/19/2024 9:34 AM EDT) Anatomical Region Laterality Modality Head Magnetic Resonan ce us Loreta Giraldo PA-C IMG MRI ORDERABLES Final Result * LAB RESULT (11/04/2024 8:14 AM EDT) us Scan Primary Care HX AMB PROCEDURES Edited Resul t - Final * Imaging Breast/Bx/Mammo Result (09/30/2024 9:17 AM EST) Anatomical Region Laterality Modality Other us Scan Obstetrics And Gynecology IMG LEGACY PROCED URES Edited Result - Final * HX GASTROENTEROLOGY COLONOSCOPY-SCAN (12/04/2023) us External Provider HX AMB PROCEDURES Final Res ult from Last 3 Months or Most Recently Relevant to Health Maintenance Insurance Krist[facility] [place] [id number] [facility] [[email or web address] MEDICARE PART A & B Care Teams High School Science Teacher Relationship Specialty Start Date End Date Loreta Giraldo PA-C [address] [place] [address] PCP - General Internal Medicine 09/11/23 Ifrah Callejas MD [address] [place] [address] Referring Provider Allergy 11/10/23 Mary Cavanaugh MD [address] [place] [address] Referring Provider Urology 11/10/23 Jagdish Romo [address] [place] [address] Physical Medicine and Rehabilitation 11/10/23 Sammie Culver MD [address] [place] [address] Orthopedic Surgery-Scan 11/10/23 Dalton Murillo Physician Cardiology-Scan 10/07/23 Heidy Harrell [facility] Nurse Practitioner Gastroenterology 10/07/23
--- OUTSIDE RECORDS SUMMARY | 2024-12-01 12:14 | XMS_ITS | Encounter Summary ---
[place] [address] Care Team Providers Care Ball Ender Name Role Phone Loreta Giraldo PA-C Primary Care Provi ronnie Ifrah Callejas MD Unavailable [phone] Mary Cavanaugh MD Unavailable [phone] Jagdish Romo Unavailable Sammie Culver MD Unavailable [phone] Encounter Details Date Type Department Care Team (Late st Contact Info) Description 06/08/2024 Scanned Document [address] [phone] Loreta Giraldo PA-C [address] [place] [address] Social History Tobacco Use Types Packs/Day Years Used Date Smoking Tobacco: Never Smokeless Tobacco: Never Alcohol Use Standard Drinks/Week Comments Not Currently 0 (1 standard drink = 0.6 oz pur e alcohol) PHQ-2 Answer Date Recorded PHQ-2 Total Score 0 05/24/2024 Physical Activity Answer Date Recorded On average, how many days pe r week do you engage in moderate to strenuous exercise (like a brisk walk)? 0 days 05/24/2024 On average, how many minutes do you exercise per day at this level? 0 min 05/24/2024 Comments Unknown Sex and Gender Information Value Date Recorded Sex Assigned at Female 11/09/2023 10:02 AM EDT Legal Sex Female 2:58 PM EST Gender Identity Female 11/09/2023 10:02 AM EDT Sexual Orientation Asexual 11/09/2023 10 :02 AM EDT documented as of this encounter Plan of Treatment Upcoming Encounters Date Type Department Care Team (Late st Contact Info) Description 12/01/2024 1:40 PM EDT Consult [facility] Weight Loss [address] [address] Loreta Giraldo PA-C [address] [place] [address] Roxy Lanza, ORTHO TECH [address] [address] 06/04/2025 11:30 AM EDT Office Visit [facility] [address] [place] [address] Loreta Giraldo PA-C [address] [place] [address] documented as of this encounter Visit Diagnoses Not on filedocumented in this encounter Care Teams Ball Ender Relationship Specialty Start Date End Date Loreta Giraldo PA-C [address] [place] [address] PCP - General Internal Medicine 09/11/23 Ifrah Callejas MD [address] [facility] [address] [place] [address] Referring Provider Allergy 11/10/23 Mary Cavanaugh MD [address] [facility] [address] [place] [address] Referring Provider Urology 11/10/23 Jagdish Romo [address] [place] [address] Physical Medicine and Rehabilitation 11/10/23 Sammie Culver MD [address] [place] [address] Orthopedic Surgery-Scan 11/10/23 Dalton Murillo Physician Cardiology-Scan 10/07/23 Heidy Harrell [employer] Nurse Practitioner Gastroenterology 10/07/23 documented as of this encounter
--- OUTSIDE RECORDS SUMMARY | 2024-12-01 12:14 | XMS_ITS | Encounter Summary ---
[place] [address] Care Team Providers Care Jack Frame Tender Name Role Phone Loreta Giraldo PA-C Primary Care Provi ronnie Ifrah Callejas MD Unavailable [phone] Mary Cavanaugh MD Unavailable [phone] Jagdish Romo Unavailable Sammie Culver MD Unavailable [phone] Encounter Details Date Type Department Care Team (Late st Contact Info) Description 06/08/2024 Scanned Document [address] [phone] Loreta Giraldo PA-C 100 [place] [address] Social History Tobacco Use Types Packs/Day Years [...] Info) Description 12/01/2024 1:40 PM EDT Consult [facility] Medical Weight Loss [address] [address] Loreta Giraldo PA-C [address] [place] [address] Roxy Lanza, AUTO PARTS HANDLER [address] [address] 06/04/2025 11:30 AM EDT Office Visit [facility] [address] [place] [address] Loreta Giraldo PA-C [address] [place] [address] documented as of this encounter Visit Diagnoses Not on filedocumented in this encounter Care Teams Jack Frame Tender Relationship Specialty Start Date End Date Loreta Giraldo PA-C 100 [place] [address] PCP - General Internal Medicine 09/11/23 Ifrah Callejas MD [address] [facility] [address] [place] [address] Referring Provider Allergy 11/10/23 Mary Cavanaugh MD [address] [facility] [address] [place] [address] Referring Provider Urology 11/10/23 Jagdish Romo [address] [place] [address] Physical Medicine and Rehabilitation 11/10/23 Sammie Culver MD [address] [place] [address] Orthopedic Surgery-Scan 11/10/23 Dalton Murillo Physician Cardiology-Scan 10/07/23 Heidy Harrell [facility] Nurse Practitioner Gastroenterology 10/07/23 documented as of this encounter
--- OUTSIDE RECORDS SUMMARY | 2024-12-01 12:14 | XMS_ITS | Encounter Summary ---
Author Organization [facility] Address [address] [place] [address] Care Team Providers Care Wrong Address Clerk Name Role Phone Loreta Giraldo PA-C Primary Care Provi ronnie Ifrah Callejas MD Unavailable [phone] Mary Cavanaugh MD Unavailable [phone] Jagdish Romo Unavailable Sammie Culver MD Unavailable [phone] Reason for Referral * ENT (Routine) - Authorized Specialty Diagnoses / Procedures Referred By Contac t Referred To Contact Otolaryngology Diagnoses Dizziness Ear pain, bilateral Ear pressure, bilateral Loreta Giraldo PA-C 100 [place] [address] Phone: tel: fax: Ashvin Knapp MD [address] [place] [address] Phone: tel: fax: Referral ID Status Reason Start Date Expiration Date V isits Requested Visits Authorized [id number] Authorized Consult 12/01/2024 12/02/2025 1 1 Encounter Details Date Type Department Care Team (Late st Contact Info) Description 12/01/2024 Orders Only [address] [place] [address] Loreta Giraldo PA-C [address] [place] [address] Dizziness (Primary Dx); Ear pain, bilateral; Ear pressure, bilateral Social History Tobacco Use Types Packs/Day Years Used Date Smoking Tobacco: Never Smokeless Tobacco: Never Alcohol Use Standard Drinks/Week Comments Not Currently 0 (1 standard drink = 0.6 oz pur e alcohol) [facility] Utilities Answer Date Recorded In the past 12 months has th e electric, gas, oil, or water company threatened to shut off services in your home? No 07/14/2024 Social Connection and Isolation Panel [NHANES] A nswer Date Recorded In a typical week, how many times do you talk on the phone with family, friends, or neighbors? Once a week 07/14/2024 Frequency of Social Gatherings with Friends and Family Not on file 07/14/2024 Attends Yazidi Services Not on file 07/14 Active Member [...] any time in the past 12 m [facility], were you homeless or living in a correction (including now)? No 07/14/2024 Physical Activity Answer [...] Info) Description 12/01/2024 1:40 PM EDT Consult [facility] Medical Weight Loss [address] [address] Loreta Giraldo PA-C 100 [place] [address] Roxy Lanza APRN 7 [facility] [address] [place] [phone] 06/04/2025 11:30 AM EDT Office Visit [facility] [address] [facility] [address] [place] [address] Loreta Giraldo PA-C 100 [place] [address] Scheduled Referrals Name Type Priority Associated Diagnoses Orde r Schedule Amb referral to ENT Outpatient Referral Routine Dizziness Ear pain, bilateral Ear pressure, bilateral Ordered: 12/01/2024 documented as of this encounter Visit Diagnoses Diagnosis Dizziness- Primary Dizziness and giddiness Ear pain, bilateral Ear pressure, bilateral documented in this encounter Care Teams Wrong Address Clerk Relationship Specialty Start Date End Date Loreta Giraldo PA-C [address] [place] [address] PCP - General Internal Medicine 09/11/23 Ifrah Callejas MD [address] [facility] [address] [place] [address] Referring Provider Allergy 11/10/23 Mary Cavanaugh MD [address] [place] [address] Referring Provider Urology 11/10/23 Jagdish Romo [address] [place] [address] Physical Medicine and Rehabilitation 11/10/23 Sammie Culver MD [address] [place] [address] Orthopedic Surgery-Scan 11/10/23 Dalton Murillo Physician Cardiology-Scan 10/07/23 Heidy Harrell [facility] Nurse Practitioner Gastroenterology 10/07/23 documented as of this encounter
--- OUTSIDE RECORDS SUMMARY | 2024-12-01 12:14 | XMS_ITS | Encounter Summary ---
Author Organization [facility] Address [address] [place] [address] Care Team Providers Care Shop Firer/Fireman Name Role Phone Loreta Giraldo PA-C Primary Care Provi ronnie Ifrah Callejas MD Unavailable [phone] Mary Cavanaugh MD Unavailable [phone] Jagdish Romo Unavailable Sammie Culver MD Unavailable [phone] Encounter Details Date Type Department Care Team (Late st Contact Info) Description 11/10/2024 Scanned Document [facility] NEUROLOGY SCAN Neurology, Scan Social History Tobacco Use Types Packs/Day Years Used Date Smoking Tobacco: Never Smokeless Tobacco: Never Alcohol Use Standard Drinks/Week Comments Not Currently 0 (1 standard drink = 0.6 oz pur e alcohol) [facility] Utilities Answer Date Recorded In the past 12 months has [facility] [employer], gas, oil, or water [employer] threatened to shut off services in your home? No 07/14/2024 Social Connection and Isolation Panel [NHANES] A nswer Date Recorded In a typical week, how many times do you talk on the phone with family, friends, or neighbors? Once a week 07/14/2024 Frequency of Social Gatherings with Friends and Family Not on file 07/14/2024 Attends Judaism Services Not on file 07/14 Active Member [...] any time in the past 12 m [facility], were you homeless or living in a halfway (including now)? No 07/14/2024 Physical Activity Answer [...] Info) Description 12/01/2024 1:40 PM EDT Consult [facility] Medical Weight Loss [address] [phone] Loreta Giraldo PA-C 100 [place] [address] Roxy Lanza, CLAY ROASTER [address] [phone] 06/04/2025 11:30 AM EDT Office Visit [facility] [address] [place] [address] Loreta Giraldo PA-C 100 [place], [place] [address] documented as of this encounter Visit Diagnoses Not on filedocumented in this encounter Care Teams Shop Firer/Fireman Relationship Specialty Start Date End Date Loreta Giraldo PA-C 100 [place] [address] PCP - General Internal Medicine 09/11/23 Ifrah Callejas MD [address] [place] [address] [address] [place] [address] Referring Provider Allergy 11/10/23 Mary Cavanaugh MD [address] [place] [address] [address] [place] [address] Referring Provider Urology 11/10/23 Jagdish Romo [address] [place] [address] Physical Medicine and Rehabilitation 11/10/23 Sammie Culver MD [address] [place] [address] Orthopedic Surgery-Scan 11/10/23 Dalton Murillo Physician Cardiology-Scan 10/07/23 Heidy Harrell [facility] Nurse Practitioner Gastroenterology 10/07/23 documented as of this encounter
--- OUTSIDE RECORDS SUMMARY | 2024-12-01 12:14 | XMS_ITS | Encounter Summary ---
[place] [address] Care Team Providers Care Senior Mechanical Designer Name Role Phone Loreta Giraldo PA-C Primary Care Provi ronnie Ifrah Callejas MD Unavailable [phone] Mary Cavanaugh MD Unavailable [phone] Jagdish Romo Unavailable Sammie Culver MD Unavailable Encounter Details Date Type Department Care Team (Late st Contact Info) Description 06/08/2024 Scanned Document [address] [phone] Loreta Giraldo PA-C 100 [place] [address] Social History Tobacco Use Types Packs/Day Years [...] 1:40 PM EDT Consult [facility] [place] [facility] Medical Weight Loss [address] [address] Loreta Giraldo PA-C [address] [place] [address] Roxy Lanza, AUTOMOBILE BODY WORKER [address] [address] 06/04/2025 11:30 AM EDT Office Visit [facility] [address] [place] [address] Loreta Giraldo PA-C [address] [place] [address] documented as of this encounter Visit Diagnoses Not on filedocumented in this encounter Care Teams Senior Mechanical Designer Relationship Specialty Start Date End Date Loreta Giraldo PA-C 100 [place] [address] PCP - General Internal Medicine 09/11/23 Ifrah Callejas MD [address] [facility] [address] [place] [address] Referring Provider Allergy 11/10/23 Mary Cavanaugh MD [address] [facility] [address] [place] [address] Referring Provider Urology 11/10/23 Jagdish Romo [address] [place] [address] Physical Medicine and Rehabilitation 11/10/23 Sammie Culver MD [address] [place] [place] [address] Orthopedic Surgery-Scan 11/10/23 Dalton Murillo Physician Cardiology-Scan 10/07/23 Heidy Harrell [facility] Nurse Practitioner Gastroenterology 10/07/23 documented as of this encounter
--- OUTSIDE RECORDS SUMMARY | 2024-12-01 12:14 | XMS_ITS | Encounter Summary ---
Author Organization [facility] Address [address] [place] [address] Care Team Providers Care Open Hearth Melter Name Role Phone Loreta Giraldo PA-C Primary Care Provi ronnie Ifrah Callejas MD Unavailable [phone] Mary Cavanaugh MD Unavailable [phone] Jagdish Romo Unavailable Sammie Culver MD Unavailable [phone] Encounter Details Date Type Department Care Team (Late st Contact Info) Description 11/23/[address] [address] Loreta Giraldo PA-C [address] [place] [address] Social History Tobacco Use Types Packs/Day Years Used Date Smoking Tobacco: Never Smokeless Tobacco: Never Alcohol Use Standard Drinks/Week Comments Not Currently 0 (1 standard drink = 0.6 oz pur e alcohol) [facility] Utilities Answer Date Recorded In the past 12 months has e electric, gas, oil, or water company threatened to shut off services in your home? No 07/14/2024 Social Connection and Isolation Panel [NHANES] A nswer Date Recorded In a typical week, how many times do you talk on the phone with family, friends, or neighbors? Once a week 07/14/2024 Frequency of Social Gatherings with Friends and Family Not on file 07/14/2024 Attends Orthodoxy Services Not on file 07/14 Active Member [...] any time in the past 12 m [facility], were you homeless or living in a custodial (including now)? No 07/14/2024 Physical Activity Answer [...] AM EDT documented as of this encounter Miscellaneous Notes * Telephone Encounter - Ina Burnham MA - 12/01/2024 10:13 AM EDT Referral placed to DR Ashvin Knapp (ENT) * Telephone Encounter - Joyce Ghotra LPN - 11/30/2024 1:21 PM EDTSummary: Requesting ENT referral Images from the original note were not included. Alma Delia Cabrera to [place] [address] Nurse AM 11/30/24 10:00 AM Patient stating her ear has not gotten any better and would really to to be referred over to ENT for the issue. Please call patient for assistants. Thank you 11/30/24 9:57 AM Nora Drake contacted Alma Delia Cabrera * Telephone Encounter - Joyce Ghotra LPN - 11/25/2024 10:33 AM EDT Pt also inquired about possible ENT referral due to increased pain and pressure in ears. She wants to know if this would be an option to see someone from ENT prior to seeing Vestibular provider? She has tried OTC Zyrtec / Claritin as noted in last office visit but these have not been effective for her. * Telephone Encounter - Joyce Ghotra LPN - 11/25/2024 10:26 AM EDT Telephone call from pt: Pt states she called in to follow up on her call from Saturday. Advised pt we were waiting for response from provider with follow up question prior to calling her back, pt verbalized understanding. I reviewed message response from provider with pt. She states she called multiple locations and due to the type of specialist they are booking further out and December was the earliest appointment available, pt is on wait list for their office should an appt become available. Pt states she was prescribed meclizine from the hospital and it out of this medication. She states it did help with her dizziness and is wondering if provider is able to refill this for her? Pt states the dizziness and headaches are still persistent and she is wondering what else she can take over the counter for the headache as tylenol has not been effective. * Telephone Encounter - Joyce Ghotra LPN - 11/23/2024 1:58 PM EDT Telephone call to pt: Pt states she is not able to get into Vestibular provider until 12.11.2024. MRI result note was also reviewed with pt. Pt verbalized understanding. Pt states she is still waking up with headaches and dizziness with nausea. Pt reports Zofran is helpful with nausea but she is asking if provider can prescribe something for the headaches / dizziness. Pt reports the dizziness is mainly in AM upon wakingand subsides but will return during the day. Pt also reports headaches are the same. She has tried over the counter tylenol with little to relief. Pt reports she is hydrating drinking water throughout the day. * Telephone Encounter - Tracy Olivera - 11/23/2024 8:30 AM EDT Pt would like a call back from a nurse she is still not feeling well pt was seen last week documented in this encounter Plan of Treatment Upcoming Encounters Date Type Department Care Team (Late st Contact Info) Description 12/01/2024 1:40 PM EDT Consult [facility] Medical Weight Loss [address] [phone] Loreta Giraldo PA-C [address] [place] [address] Roxy Lanza, HEALTH CARE FACILITIES INSPECTOR [address] [address] 06/04/2025 11:30 AM EDT Office Visit [facility] [address] [place] [address] Loreta Giraldo PA-C [address] [place] [address] documented as of this encounter Visit Diagnoses Not on filedocumented in this encounter Care Teams Open Hearth Melter Relationship Specialty Start Date End Date Loreta Giraldo PA-C [address] [place] [address] PCP - General Internal Medicine 09/11/23 Ifrah Callejas MD [address] [facility] [address] [place] [address] Referring Provider Allergy 11/10/23 [place] [address] [place] [address] [address] [place] [address] Referring Provider Urology 11/10/23 Jagdish Romo [address] [place] [address] Physical Medicine and Rehabilitation 11/10/23 Sammie Culver MD [address] [place] [address] Orthopedic Surgery-Scan 11/10/23 Dalton Murillo Physician Cardiology-Scan 10/07/23 Heidy Harrell [facility] Nurse Practitioner Gastroenterology 10/07/23 documented as of this encounter
--- OUTSIDE RECORDS SUMMARY | 2024-12-01 12:14 | XMS_ITS | Patient Health Record ---
Author Organization [facility] Address [address] [place] [address] Care Team Providers Care Break Out Worker Name Role Phone DAKOTA STEWART Primary Care Provider Unavail able ABDOULAYE ZAVALA Unavailable [phone] Allergies Allergen (clinical drug ingredient) Drug/Non Drug Allergy documented on EMR Reaction Allergy Type Onset Date Status morphine Morphine Vomit Drug Allergy Active Substance with sulfonamide structure and antibacterial mechanism of action (substance) Sulfa Antibiotics Rash Drug Allergy Active Reason For Referral No Information Medications Medication SIG (Take, Route, Frequency, Duration) [...] Problem Status W/U Status Risk Notes Problem Postmenopausal atrophic vaginitis (59399479) Postmenopausal atrophic vaginitis (N95.2) Active confirmed Problem Incomplete uterovaginal prolapse (972910839) Incomplete uterovaginal prolapse (N81.2) Active confirmed Problem Herniation of rectum into vagina (762456841) Rectocele (N81.6) Active confirmed Problem Hidradenitis suppurativa (46135135) Hidradenitis suppurativa (L73.2) Active confirmed Problem Degeneration of lumbosacral intervertebral disc (78975599) Other intervertebral disc degeneration, lumbosacral region (M51.37) Active confirmed Problem Chronic interstitial cystitis (236414252) Interstitial cystitis (chronic) without hematuria (N30.10) Active confirmed Problem Cystocele (081211378) Cystocele, unspecified (N81.10) Active confirmed Problem Complete uterovaginal prolapse (25670563) Complete uterovaginal prolapse (N81.3) Active confirmed Problem Irritable bowel syndrome (41880438) Mixed irritable bowel syndrome (K58.2) Active confirmed Problem Degeneration of cervical intervertebral disc (63858856) Other cervical disc degeneration, mid-cervical region, unspecified level (M50.320) Active confirmed Problem COVID-19 (758232758) COVID-19 (U07.1) Active confirmed Vital Signs Temperature 97.8 degrees Fahrenheit 09/24/2024 Blood pressure diastolic 70 mm Hg 09/24/2024 Height 68 in 09/24/2024 Blood pressure systolic 117 mm Hg 09/24/2024 Weight 185 lbs 09/24/2024 BMI 28.13 kg/m2 09/24/2024 Encounters Encounter Location Date Provider Diagnosis [address] [address] 03/31/2024 ABDOULAYE ZAVALA Other specified noninflammatory disorders of vagina N89.[address] [address] 09/24/2024 ABDOULAYE ZAVALA Encounter for gynecological examination (general) (routine) without abnormal findings Z01.419 and Encounter for screening mammogram for malignant neoplasm of breast Z12.31 Assessments Encounter Date Diagnosis (ICD Code) Assessment Notes Treatment Notes Treatment Clinical Notes Section Notes 03/31/2024 Other specified noninflammatory disorders of vagina (ICD-10 - N89.8) reassurance given, no cyst found 09/24/2024 Encounter for gynecological examination (general) (routine) without abnormal findings (ICD-10 - Z01.419) During the visit, the following areas of concern were addressed: Discussed cervical cancer screening with either cytology alone every 3 years or high risk HPV co-testing every 5 years as per ASCCP guidelines. Advised continued annual pelvic exams. Patient encouraged to increase her level of exercise. SBE technique encouraged/taug ht. Patient reminded when annual mammogram is due. Patient encouraged to keep colon screening up to date. 09/24/2024 Encounter for screening mammogram for malignant neoplasm of breast (ICD-10 - Z12.31) Plan Of Treatment Pending Test Test Name Order Date ULTRASOUND: PELVIC W/TRANSVAGINAL 2020 MM Digital Screening Mammogram 3D 2022 MM Digital Screening Mammogram 3D 2023 MM Digital Screening Mammogram 3D 2024 Next Appt Details Provider Name:ABDOULAYE VILLEGAS Claudio, 09/30/2025 01:00:00 PM, [address], [address], [place], [address], Insurance Providers Payer Name Payer Address Payer Phone Subscriber Number Group Number Insured Name Patient Relationship to Insured Coverage Start Date Coverage End Date [employer] [place] [address] [place] [address] [id number] PINKY LOPEZ Spouse - patient is the spouse of the insured Medical (General) History Medical History History ICD Code Mixed irritable bowel syndrome K58.2 Interstitial cystitis (chronic) without hematuria N30.10 Other intervertebral disc degeneration, lumbosacral region M51.37 Other cervical disc degeneration, mid-ce rvical region, unspecified level M50.320 COVID-19 U07.1 Cystocele, unspecified N81.10 Complete uterovaginal prolapse N81.3 Rectocele N81.6 Postmenopausal atrophic vaginitis N95.2 Hidradenitis suppurativa L73.2 Abscess of vulva N76.4 Surgical History Surgery Date(Month/Year) Spinal Fusion x3 05/28, 05/15/21 Thoracic Decompression 02/08/21 vaginal hysterectomy, left s acrospinous suspension, right uterosacral suspension, rectocele repair and botox with Dr Rodríguez Hoyt 02/2018 SPARC retropubic sling with Dr Almonte 20 03 APPENDECTOMY 04/21/2022 laparoscopic excision of endometriosis 1 996 Neck surgery - spacer inserted 01/2023 Grinfelt hernia repair 05/2024 Hospitalization History Reason Date(Month/Year) See Surgical History Childbirth
--- OUTSIDE RECORDS SUMMARY | 2024-12-01 12:14 | XMS_ITS | Encounter Summary ---
[place] [address] Care Team Providers Care Hi Lo Driver Name Role Phone Loreta Giraldo PA-C Primary Care Provi ronnie Ifrah Callejas MD Unavailable Mary Cavanaugh MD Unavailable [phone] Jagdish Romo Unavailable Sammie Culver MD Unavailable [phone] Encounter Details Date Type Department Care Team (Late st Contact Info) Description 06/08/2024 Scanned Document [address] [phone] Loreta Giraldo PA-C [address] [place] [address] Social History Tobacco Use Types Packs/Day Years [...] Description 12/01/2024 1:40 PM EDT Consult [facility] Medical Weight Loss [address] [address] Loreta Giraldo PA-C [address] [place] [address] Roxy Lanza, RN PEDIATRIC ICU [address] [address] 06/04/2025 11:30 AM EDT Office Visit [facility] [address] [place] [address] Loreta Giraldo PA-C [address] [place] [address] documented as of this encounter Visit Diagnoses Not on filedocumented in this encounter Care Teams Hi Lo Driver Relationship Specialty Start Date End Date Loreta Giraldo PA-C [address] [place] [address] PCP - General Internal Medicine 09/11/23 Ifrah Callejas MD [address] [facility] [address] [place] [address] Referring Provider Allergy 11/10/23 Mary Cavanaugh MD [address] [facility] [address] [place] [address] Referring Provider Urology 11/10/23 Jagdish Romo [address] [place] [address] Physical Medicine and Rehabilitation 11/10/23 Sammie Culver MD [address] [place] [address] Orthopedic Surgery-Scan 11/10/23 Dalton Murillo Physician Cardiology-Scan 10/07/23 Heidy Harrell [facility] Nurse Practitioner Gastroenterology 10/07/23 documented as of this encounter
--- OUTSIDE RECORDS SUMMARY | 2024-12-01 12:14 | XMS_ITS | Encounter Summary ---
Author Organization [facility] Address [address] [place] [address] Care Team Providers Care Supervisor Harvesting Name Role Phone Loreta Giraldo PA-C Primary Care Provi ronnie Ifrah Callejas MD Unavailable [phone] Mary Cavanaugh MD Unavailable [phone] Jagdish Romo Unavailable Sammie Culver MD Unavailable [phone] Reason for Visit * Reason Onset Date Comments Referral 11/30/2024 Encounter Details Date Type Department Care Team (Late st Contact Info) Description 11/30/[address] [address] Loreta Giraldo PA-C [address] [place] [address] Referral Social History Tobacco Use Types Packs/Day Years Used Date Smoking Tobacco: Never Smokeless Tobacco: Never Alcohol Use Standard Drinks/Week Comments Not Currently 0 (1 standard drink = 0.6 oz pur e alcohol) [place] Utilities Answer Date Recorded In the past [...] and Family Not on file 07/14/2024 Attends Hinduism Services Not on file 07/14 Active Member [...] any time in the past 12 m [facility], were you homeless or [...] encounter Miscellaneous Notes * Telephone Encounter - Joyce Ghotra LPN - 11/30/2024 1:23 PM EDT Duplicate encounter. This is being addressed in previous telephone encounter. documented in this encounter Plan of Treatment Upcoming Encounters Date Type Department Care Team (Late st Contact Info) Description 12/01/2024 1:40 PM EDT Consult [facility] Medical Weight Loss [address] [address] Loreta Giraldo PA-C [address] [place] [address] Roxy Lanza, MAORI LIAISON ADVISER [address] [address] 06/04/2025 11:30 AM EDT Office Visit [facility] [address] [place] [address] Loreta Giraldo PA-C [address] [place] [address] documented as of this encounter Visit Diagnoses Not on filedocumented in this encounter Care Teams Supervisor Harvesting Relationship Specialty Start Date End Date Loreta Giraldo PA-C [address] [place] [address] PCP - General Internal Medicine 09/11/23 Ifrah Callejas MD [address] [place] [address] Referring Provider Allergy 11/10/23 Mary Cavanaugh MD [address] [place] [address] Referring Provider Urology 11/10/23 Jagdish Romo [address] [place] [address] Physical Medicine and Rehabilitation 11/10/23 Sammie Culver MD [address] [place] [address] Orthopedic Surgery-Scan 11/10/23 Dalton Murillo Physician Cardiology-Scan 10/07/23 Heidy Harrell [facility] Nurse Practitioner Gastroenterology 10/07/23 documented as of this encounter
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
--- OUTSIDE RECORDS SUMMARY | 2024-12-01 12:15 | XMS_ITS ---
Author Organization [facility] Address [address] [address] Care Team Providers Care Mine Technician Name Role Phone DAKOTA STEWART Primary Care Provider Unavail able ABDOULAYE ZAVALA Unavailable [phone] REASON FOR VISIT Annual CLOTH FRAMER Physical Encounters Encounter Location Date Provider Diagnosis [facility] [address] [address] 09/03/2024 ABDOULAYE ZAVALA Encounter for gynecological examination (general) (routine) without abnormal findings Z01.419 ; Encounter for screening mammogram for malignant neoplasm of breast Z12.31 and Encounter for screening for infections with a predominantly sexual mode of transmission Z11.3 Assessments Encounter Date Diagnosis (ICD Code) Assessment Notes Treatment Notes Treatment Clinical Notes Section Notes 09/03/2024 Encounter for gynecological examination (general) (routine) without [...] to keep colon screening up to date. 09/03/2024 Encounter for screening mammogram for malignant neoplasm of breast (ICD-10 - Z12.31) 09/03/2024 Encounter for screening for infections with a predominantly sexual mode of transmission (ICD-10 - Z11.3) Plan Of Treatment Treatment Notes Assessment Notes [...] Follow Up: 1 Year, Reason: Y early Inside Contractor Sales Exam Provider Name:ABDOULAYE Elsy NELLY Snyder, 09/30/2025 01:00:00 PM, [address], [address], [place], [address], Progress Notes * LISA HANCOCKADOB: [birth year] (64 yo F)Acc No.[id number]:09/03/2024 PROGRESS NOTES Patient:?NAVEED HANCOCK Provider:?ABDOULAYE ZAVALA MD :1960???Age:64 Y???Sex:Female D ate:09/03/2024 Address:[address] [place] [address] Pcp:DAKOTA ARGUELLO Subjective: * Chief Complaints: * ???1. Annual CLOTH FRAMER Physical. * HPI: ???Constitutional:?Naveed is a 64yo s/p vaginal hysterectomy with pelvic reconstruction in 02/2018 who presents for her yearly fudge candy maker exam. ? She has been in state of *fair health since her last exam. She has the following fudge candy maker concerns: none* She was last seen in 03/2024 for a potential vaginal cyst seen on imaging. Upon exam, there was a pocket palpable on the patient's left vaginal wall, about 1 o'clock, but no cyst found. ? She has received the [place] [employer] Covid-19 vaccine and Pfizer booster. ? Relationship status: * for 29 years. She feels safe at home. She is not sexually active, due to Interstitial Cystitis. Sexual partner(s): male. She does not wish to have STI testing. ? She does* report vaginal dryness - she hasn't been using vaginal Estradiol and would like to restart. She does* have hot flashes/night sweats - she wakes up completely soaked. She previously used Sertraline for about 3 years, and didn't find it helpful. She is not really concerned about this. ? Pap smears are no longer indicated. ? She has not been diagnosed with breast cancer. She does *not have a family history of breast cancer. Her last mammogram was 08/28/23. ? She does *not have a family history of colon cancer. She a has had a colonoscopy. The last colonoscopy was 06/2021 at [facility]. She reports having a lot of colon issues and may go again soon. ? The patient does *not exercise. She has had neck and back surgery and gastro problems, so she no longer does water exercises. * ROS:?Annual Inside Contractor Sales Exam ROS:?Bowel habit changes?denies.?Bladder symptoms?denies.?Vaginal discharge, unusual?denies.?Vaginal itch or odor?denies.?weight or appetite changes?denies.?Chest pains, SOB?denies.?depression?denies.?Breast:?Denies?Breast lump.?Denies?Nipple discharge.?Hematology:?Denies?Swollen glands.?Skin:?Patient denies?changing moles.?Psychiatric:?Denies?Anxiety.? * Medical History:? Objective: * Vitals:? * Examination: ???General Examination: ?GENERAL APPEARANCE:?in no acute distress, well developed, well nourished, fisheries management biologist present in room.?HEAD:?normocephalic, atraumatic.?NECK/THYROID:?neck supple, full range of motion, thyroid normal.?LYMPH NODES:?no axillary or supraclavicular adenopathy.?SKIN:? normal, good turgor, no rashes, no suspicious lesions.?BREASTS:? normal, no dimpling, no discharge, no drainage, no masses palpable bilaterally, nontender.?ABDOMEN:? soft, non-tender, non distended without masses or hepatosplenomegay.?RECTAL:? normal tone, no masses palpable.?BACK:? no costovertebral angle tenderness.?FEMALE GENITOURINARY:?Vulva without lesions or masses, vagina pink without abnormal discharge, lesions or masses, cervix appears normal and is not tender to palpation, uterus is normal size, mobile, nontender and anteverted, ovaries are not palpable.?NEUROLOGIC:? alert and oriented, gait normal.?PSYCH:? alert, oriented, cognitive function intact, cooperative with exam, good eye contact, mood/affect full range, speech clear.? Assessment: * Assessment: 1.?Encounter for gynecologic al examination (general) (routine) without abnormal findings - Z01.419 (Primary)???2.?Encounter for screening mammogram for malignant neoplasm of breast - Z12.31???3.?Encounter for screening for infections with a predominantly sexual mode of transmission - Z11.3??? Plan: * Treatment: 2.?Encounter for screening m ammogram for malignant neoplasm of breast?Imaging: MM Digital Screening Mammogram 3D * Follow Up:?1 Year (Reason: Y early Inside Contractor Sales Exam) * Images: Billing Information: * Visit Code:? 76302 Preventive Care Est Pt. Age 40-64. * Procedure Codes:? 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 She has been in state of *fair health since her last exam. She has the following fudge candy maker concerns: none* She was last seen in 03/2024 for a potential vaginal cyst seen on imaging. Upon exam, there was a pocket palpable on the patient's left vaginal wall, about 1 o'clock, but no cyst found. She has received the [employer] [place] Covid-19 vaccine and Pfizer booster. Relationship status: * for 29 years. She feels safe at home. She is not sexually active, due to Interstitial Cystitis. Sexual partner(s): male. She does not wish to have STI testing. She does* report vaginal dryness - she hasn't been using vaginal Estradiol and would like to restart. She does* have hot flashes/night sweats - she wakes up completely soaked. She previously used Sertraline for about 3 years, and didn't find it helpful. She is not really concerned about this. Pap smears are no longer indicated. She has not been diagnosed with breast cancer. She does *not have a family history of breast cancer. Her last mammogram was 08/28/23. She does *not have a family history of colon cancer. She a has had a colonoscopy. The last colonoscopy was 06/2021 at [facility]. She reports having a lot of colon issues and may go again soon. The patient does *not exercise. She has had neck and back surgery and gastro problems, so she no longer does water exercises. Examination Category Sub-Category Detail Notes Category Not es General Examination GENERAL APPEARANCE: in no ac yeimi distress, well developed, well nourished, fisheries management biologist present in room HEAD: normocephalic, atrau matic [...] full range, speech clear FEMALE GENITOURINARY: Vulva without lesi ons or masses, vagina pink without abnormal discharge, lesions or masses, cervix appears normal and is not tender to palpation, uterus is normal size, mobile, nontender and anteverted, ovaries are not palpable
--- OUTSIDE RECORDS SUMMARY | 2024-12-01 12:15 | XMS_ITS ---
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 active 2023-11-10 ProblemAct [facility] Degeneration of lumbar intervertebral disc active 2023-11-10 ProblemAct [facility] Irritable bowel syndrome with constipation active 2023-09-11 ProblemAct [facility] Lumbar spondylosis active 2023-11-10 ProblemAct [facility] Overactive bladder active 2023-12-11 ProblemAct [facility] Dyspnea on exertion active 2023-09-11 ProblemAct [facility] Hyperlipidemia active 2023-09-[address] Recurrent major depressive disorder, in partial remission active 2023-09-11 ProblemAct [facility] Anxiety active 2023-11-10 ProblemAct [facility] Chronic interstitial cystitis active 2015-06-06 ProblemAct [facility] Class 1 obesity active 2023-12-11 ProblemAct HH [facility] Weight gain active 2023-09-11 ProblemAct [facility] Immunizations Vaccine Date Source Lot Number Status Tdap 05/22/2023 [facility] completed Zoster Vaccine Recombinant (Shingrix) 02/08/2022 [facility] completed Zoster Vaccine Recombinant (Shingrix) 09/13/2021 [facility] completed Encounters Encounter Type Encounter Reason Primary Diagnosis Location Date Ambulatory Dizziness and giddiness Dizziness and giddiness [place] [facility] 11/18[facility]24 Amb[facility] Parest[facility] of [facility] 09/07[facility]2024 Ambulatory Follow-up Follow-up [facility] 07/15/2024 Ambulatory Encounter for general adult medical examination without abnormal findings Encounter for general adult medical examination without abnormal findings [facility] 05/25/2024 Ambulatory Anxiety disorder, unspecified Anxiety disorder, unspecified [facility] 04/06/2024 Ambulatory Personal history of COVID-19 Personal history of COVID-19 [facility] 02/27/2024 Ambulatory Interstitial cystitis (chronic) without hematuria Interstitial cystitis (chronic) without hematuria [facility] 12/11/2023 Ambulatory Hyperlipidemia, unspecified Hyperlipidemia, unspecified [facility] 09/11/2023 Care Team Organization Name Specialty Phone Email Start Date End Da te [facility] 09/11/2023 [facility] DAKOTA CHRISTIAN Primary Care 09/11/2023 [facility] NO PCP Primary Care 09/11/2023 09/11/2023
--- OUTSIDE RECORDS SUMMARY | 2024-12-01 12:15 | XMS_ITS | Patient Health Record ---
Author Organization [facility] Address [address] [place] [address] Care Team Providers Care Bung Driver Name Role Phone WEIEBERSTEPHANE DAKOTA Primary Care Provider Unavail Reji Em Jr Unavailable [phone] Allergies Allergen (clinical drug ingredient) Drug/Non Drug Allergy documented on EMR Reaction Allergy Type Onset Date Status Substance with sulfonamide structure and antibacterial mechanism of action (substance) Sulfa Antibiotics Unknown Drug Allergy Active Reason For Referral No Information Medications Medication SIG (Take, Route, Fr equency, Duration) Notes Start Date End Date Status ZyrTEC 10 MG 1 tablet Orally Once a day for 30 day(s) Active Ketamine HCl 10 MG/ML as directed Active Omeprazole 20 MG TAKE 1 CAPSULE BY [facility] EVERY DAY 30 MINUTES BEFORE MORNING MEAL FOR 30 DAYS for 90 Active Naltrexone HCl 50 MG 1 tablet Orally Onc e a day for 30 day(s) Active Gemtesa 75 MG Oral for 30 Acti ve LORazepam 0.5 MG 1 tablet at bedtime as needed Orally Once a day Active Probiotic 250 MG 1 capsule Orally Twi ce a day for 30 day(s) Active Vitamin D Active Immunizations Vaccine Route Administration Date Status Comme nts Flu vaccine no Preserv 3 and > Unknown 07/12/2016 Admin istered Influenza Unknown 04/12/2019 Administered Influenza Unknown 06/07/2021 Administered Influenza Unknown 10/22/2022 Refused Problems Problem Type SNOMED Code ICD Code Onset Dates Problem Status W/U Status Risk Notes Problem 64063288 Abdominal pain, epigastric (R10.13) Active confirmed Problem 555492039 Irritable bowel syndrome with constipation (K58.1) Active confirmed Problem [id number] Irritable bowel syndrome with both constipation and diarrhea (K58.2) Active confirmed Plan Of Treatment Pending Test Test Name Order Date STOOL WBC 05/04/2020 OVA & PARASITES (O&P) 05/04/2020 CULTURE, STOOL 05/04/2020 Future Test Test Name Order Date COLONOSCOPY 06/14/2021 UPPER GI ENDOSCOPY 10/22/2022 Insurance Providers Payer Name Payer Address Payer Phone Subscriber Number Group Number Insured Name Patient Relationship to Insured Coverage Start Date Coverage End Date [facility] [address] [place], [place] [id number] NAVEED HANCOCK Self - patient is the insured Medical (General) History Medical History History ICD Code Colonoscopy 07/02, normal, ten-year foll owup Interstitial cystitis with urinary incon tinence Irritable bowel syndrome Anxiety Hyperlipidemia Surgical History Surgery Date(Month/Year) bladder suspension 2002 hydrodistention 2012,2015 botox injection bladder [id number] spinal surgery 2021 neck surgery 2021 appendectomy apr 2022
== END 2024-12-01 10:30 | disposition home or self-care (01) ==
LOC: HO.CT 10:29
PROVIDERS: PCP Physician Assistant Medical; Visit Provider Nurse Practitioner
DX: M51.369 Other intervertebral disc degeneration, lumbar region without mention of lumbar back pain or lower extremity pain (principal)
CPT/HCPCS: 72131

== ENCOUNTER → 2024-12-01 10:53 | Outpatient (BNV) | payer MEDICARE, BC, SELFPAY | PROVIDERS: PCP Physician Assistant Medical; Visit Provider Radiology Vascular & Interventional Radiology | DX: M51.360 Other intervertebral disc degeneration, lumbar region with discogenic back pain only (principal) | CPT/HCPCS: 72131 ==

== ENCOUNTER 2024-12-05 22:28 | Emergency (ER) | payer MEDICARE, BC, SELFPAY ==
[2024-12-05 22:34] VITALS: BP 107/40; PULSE 67; RESP 18; TEMP 36.2; O2SAT 94; BMI 29.0
--- NOTE | 2024-12-05 22:48 | ED_ITS ---
HPI - General Adult General Chief complaint: Eye Problems Stated complaint: left eye pain/redness Time Seen by Provider: 12/05/24 22:48 History of Present Illness ED Provider: Keri FORBES narrative: The patient is a 64-year-old female who occasionally wears a contact lens in her left eye. About a week ago she started having pain in the left eye and redness. She has gone to an urgent care office 2 times during the last week. She went once 4 days ago and was prescribed polymyxin eyedrops. She did not feel that she was getting any better and returned to the urgent care yesterday and was prescribed tobramycin drops instead. She says that she is not feeling any better. She has not resumed use of the contacts. Related Data Home Medications ?Medication ?Instructions ?Recorded ?Confirmed estradiol 0.01% (0.1 mg/gram) vaginal 2XW 06/30/20 vaginal cream multivitamin 1 tab PO DAILY 12/28/20 12/28/20 Previous Rx's ?Medication ?Instructions ?Recorded ofloxacin 0.3 % eye drops (Ocuflox) See Rx Instructions ophthalmic 12/06/24 (eye) .COMPLEX #5 mL Allergies Allergy/AdvReac Type Severity Reaction Status Date / Time Sulfa (Sulfonamide Allergy Intermediate Rash Verified 12/05/24 22:36 Antibiotics) Review of Systems Review of Systems: Yes all other systems are reviewed and are negative PMF Past Medical History Medical History Dyspepsia Folliculitis Insomnia Interstitial cystitis Postlaminectomy syndrome Rectocele Surgical History H/O spinal fusion History of back surgery History of bladder surgery History of colonoscopy History of esophagogastroduodenoscopy (EGD) History of lumbar laminectomy Hx of vaginal hysterectomy Family History Family History Father No problems noted. Mother No problems noted. Sister No problems noted. Sister No problems noted. Son No problems noted. Daughter No problems noted. Daughter No problems noted. Social History Social History Alcohol intake: never Patient Tobacco Use Status: Never used Tobacco Advance Directives: No Do you have a plan to hurt others: No Plan Patient : No Physical Exam ED Vital Signs: Vital Signs - 24 hr 12/05/24 22:34 12/05/24 23:45 12/05/24 23:46 Temperature 97.2 F 98.5 F 98.5 F Pulse Rate 67 78 78 Respiratory Rate 18 17 17 Blood Pressure 107/40 L 126/78 126/78 Pulse Oximetry 94 98 98 Oxygen Delivery Method Room Air Room Air Room Air BMI result Body Mass Index 29.0 Const Other: The patient is awake and alert. She has some obvious redness to the left eye. She does not appear acutely ill otherwise. HENMT Other: Face is symmetrical. Mucous membranes moist. Eyes Other: Visual acuity with corrective glasses is 20/40 in the patient's right eye and 20/70 in the patient's left eye. There is some conjunctival injection of the left eye. There is some purulent discharge to the left eye. Both pupils are round, equal, and reactive. Extraocular movements are intact. Slit-lamp exam did not reveal any significant corneal uptake of fluorescein. The anterior chamber seemed clear. I do not see any definite corneal irregularities. Intra-ocular pressure in each eye is about 10. Neck Neck: Yes full ROM Skin Other: Skin is pale and dry Neuro Other: The patient is awake, alert, pleasant, cooperative. Pupils seem equal and reactive to light. Extraocular movements are intact. Face is symmetrical. Speech is clear. Gait is steady. Extrem Other: No peripheral edema Medications Administered Discontinued Medications Generic Name Dose Route Start Last Admin Trade Name Neela PRN Reason Stop Dose Admin Fluorescein Sodium 1 strip 12/05/24 22:52 12/05/24 23:42 Fluorescein Sodium Strip EYE-LEFT 12/05/24 22:53 1 strip ONCE ONE Administration Ketorolac Tromethamine 30 mg 12/05/24 23:34 12/05/24 23:42 Ketorolac Tromethamine 30 Mg/Ml Vial IM 12/05/24 23:35 30 mg ONCE ONE Administration Tetracaine HCl 3 drop 12/05/24 22:52 12/05/24 23:42 Tetracaine Hcl 0.5% Oph Lorraine 5 Ml Drops EYE-LEFT 12/05/24 22:53 3 drop ONCE ONE Administration Medical Decision Making Medical Decision Making MDM Narrative: The patient is a 64-year-old woman who sometimes wears a contact in her left eye. She has been having problems with the left eye for about a week. She was started on polymyxin drops 3 days ago at an urgent care. The drops were changed to tobramycin drops yesterday. She does not feel she is getting any better. Her visual acuity is 20/40 in her right eye and 20/70 in her affected eye. Intra-ocular pressures are similar and normal in both eyes. Pupils are round equal and reactive. There is some conjunctival injection to the left eye but no perilimbal flushing. Slit-lamp exam did not show any abnormalities to the anterior chamber. Fluorescein staining did not show any definite uptake. Although the patient clearly seems to have a lot of discomfort with the left I am not finding any definite finding of any acutely dangerous process other than conjunctivitis. I do not see signs of fluorescein uptake that would distinctly indicate keratitis. 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 Hernandez's in the coming week. However after discharge I called her and said that I would send a prescription for ofloxacin drops to her pharmacy which I would like her to use instead of the tobramycin. Discharge Plan Discharge Clinical Impression: Conjunctivitis of left eye Patient Disposition: Home, Self-Care Instructions: Conjunctivitis (ED) Additional Instructions: I think you should not participate in the consult as scheduled tomorrow on . Please continue using the tobramycin eyedrops as previously prescribed. Please use 400 mg of ibuprofen every 6 hours as needed for pain. You may also use 1000 mg of acetaminophen (Tylenol) every 8 hours as needed for pain. Please call your regular eye doctor's office on Saturday morning for a follow up appointment to discuss this further. If you are unable to see your regular eye doctor on Saturday please contact Dr. Hernandez's office instead. In either event you should be seen early this week. Return to the emergency room if you feel things are getting significantly worse. Prescriptions: New ofloxacin [Ocuflox] 0.3 % drops See Rx Instructions .ROUTE .COMPLEX Qty: 5 0RF Rx Instructions: put 2 drps into affected eye(s) every 3 h x 2 days, then 2 drps 4 times/day days 7 No Action estradiol 0.01 % (0.1 mg/gram) cream vaginal 2XW multivitamin Tablet 1 tab PO DAILY Referrals: Darren Hernandez [Physician] - (left eye conjunctivitis) Interventions: ED Discharge Assessment Last Done: 12/05/24 23:46 Discharge Date/Time: 12/05/24 23:46 Print Language: Citizen [place]
[2024-12-05] MEDS: Ketorolac Tromethamine 30 MG/ML VIAL IM (23:42)
[2024-12-05] MEDS: Fluorescein Sodium STRIP 1 STRIP EYE-LEFT (23:42)
[2024-12-05] MEDS: Tetracaine HCl 0.5% Oph Sol 5 ML DROPS 3 DROP EYE-LEFT (23:42)
[2024-12-05 23:45] VITALS: BP 126/78; PULSE 78; RESP 17; TEMP 36.9; O2SAT 98
[2024-12-05 23:46] VITALS: BP 126/78; PULSE 78; RESP 17; TEMP 36.9; O2SAT 98
== END 2024-12-05 23:46 | disposition home or self-care (01) ==
PROVIDERS: Emergency Provider Emergency Medicine; PCP Physician Assistant Medical
DX: H10.89 Other conjunctivitis (principal); H57.12 Ocular pain, left eye
CPT/HCPCS: 96372; 99284; J1885